=== PATIENT | female | born 1980 | race Caucasian/White ===

== ENCOUNTER 2023-10-31 09:23 | Emergency (ER) | payer BC ==
--- OUTSIDE RECORDS SUMMARY | 2023-10-31 09:27 | XMS REPORT | Continuity of Care Document ---
Author Name Unknown Address [address] [facility] [address] [place] [address] [facility] thconnect Address [address] [facility]. [address] [place] [address] Care Team Providers Care Supervisor Of Way Name Role Phone LEILANI MEDELLIN Primary Care Physician Unav ailable CHINMAY DAY Attending Clinician Unavailable Fernando Louise Attending Clinician [phone] Chinmay Day MD Attending Clinician [phone] LEIDY DAVILA Attending Clinician Unavailable Leidy Davila MD Attending Clinician [phone] Doctor Unassigned, [place] Attending Clinician U navailable DARREN GORE Attending Clinician Unavailable Jcarlos Caraballo DO Attending Clinician [phone] Darren Gore DO Attending Clinician [phone] Jimbo Jackson MD Attending Clinicia n Jonny Snow MD Attending Clinician [phone] Radiology Attending Clinician Unavailable RADIOLOGY Attending Clinician Unavailable Amy Curiel NP Attending Clinician [phone] DARREN GORE Admitting Clinician Unavailable Darren Gore DO Admitting Clinician [phone] Payers Payer Name Policy Type Policy Number Effective Date Expirati on Date Source BCBS [facility] - OUT OF STATE [id number] 1 2017 00:00:00 COMMERCIAL NON-CONTRACT GENERIC [id number] 2016 00:00:00 Problems Condition Name Condition Details Condition Category Status Onset Date Resolution Date Last Treatment Date Treating Clinician Comments Source Acute appendicit is Acute appendicit is Disease Active 2021-08 00:00: 00 [facility] Obesity (BMI 30-39.9) Obesity (BMI 30-39.9) Disease Active 2021-08 00:00: 00 [facility] Right lower quadrant abdominal pain Right lower quadrant abdominal pain Disease Active 2021-08 00:00: 00 Overview: Formattin g of this note might be different from the original. Added automatic ally from request for surgery [id number] [facility] No known active problems No known active problems Disease [facility] Allergies, Adverse Reactions, Alerts Allergy Name Allergy Type Status Severity Reaction(s) Onset Date Inactive Date Treating Clinician Comments Source NO KNOWN ALLERGIE S Drug Class Active [facility] Social History Social Habit Start Date Stop Date Quantity Comments Source [facility] History of tobacco use Cigarette Smoker [facility] ASSERTION [facility] Exposure to SARS-CoV-2 (event) 2022-06-15 00:00:00 2022-06-25 08:31:[address] [facility] Alcohol intake 2022-06-25 00:00:00 2022-06-25 00:00:00 Current drinker of alcohol (finding) [facility] History of Social function 2022-06-10 00:00:00 2022-06-10 00:00:00 [facility] Tobacco use and exposure 2022-06-09 00:00:00 2022-06-09 00:00:00 Smokeless tobacco non-user [facility] Education - What is the highest level of school you have completed or the highest degree you have received? 2022-06-09 00:00:00 2022-06-09 00:00:[address] [facility] Sex Assigned At 1980 00:00:00 1980 00:00:00 [facility] Smoking Status Start Date Stop Date Source Ex-smoker 2022-06-09 00:00:00 2022-06-09 00:00:00 [facility] Unknown if ever smoked [facility] Medications Ordered Medication Name Filled Medication Name Start Date Stop Date Current Medication? Ordering Clinician Indication Dosage Frequency Signature (SIG) Comments Components Source acetaminoph en-codeine (TYLENOL #3) 300-30 mg tablet 1 tablet 2021-08 19:00: 00 06-11 18:36 :00 No 1{tbl} 1 tablet, Oral, ONCE, 1 dose, On Sat06/11/22 at 1300, Routine [facility] acetaminoph en-codeine (TYLENOL #3) 300-30 mg tablet 1 tablet 2021-08 19:00: 00 06-11 18:36 :00 No 1{tbl} 1 tablet, Oral, ONCE, 1 dose, On Sat06/11/22 at 1300, Routine [facility] omeprazole (PRILOSEC) capsule 40 mg 2021-08 15:00: 00 Yes 40mg 40 mg, Oral, DAILY, First dose on Sat06/11/22 at 0900, Until Discontinu ed [facility] omeprazole (PRILOSEC) capsule 40 mg 2021-08 15:00: 00 Yes 40mg 40 mg, Oral, DAILY, First dose on Sat06/11/22 at 0900, Until Discontinu ed [facility] Thyroid, Pork, (ARMOUR THYROID) 90 mg tablet 2021-08 13:07: 21 Yes Take by mouth. [facility] buPROPion SR 100 mg SR tablet 2021-08 13:07: 21 Yes 100mg Take 100 mg by mouth in the morning and 100 mg in the evening. [facility] lamoTRIgine 25 mg tablet 2021-08 13:07: 21 Yes 25mg Take 25 mg by mouth in the morning. [facility] omeprazole 40 mg capsule 2021-08 13:07: 21 Yes 40mg Take 40 mg by mouth in the morning. [facility] topiramate 50 mg Cp24 2021-08 13:07: 21 Yes Take by mouth. [facility] citalopram 40 mg tablet 2021-08 13:07: 21 Yes 40mg Take 40 mg by mouth in the morning. [facility] Thyroid, Pork, (ARMOUR THYROID) 90 mg tablet 2021-08 13:07: 21 Yes Take by mouth. [facility] buPROPion SR 100 mg SR tablet 2021-08 13:07: 21 Yes 100mg Take 100 mg by mouth in the morning and 100 mg in the evening. [facility] lamoTRIgine 25 mg tablet 2021-08 13:07: 21 Yes 25mg Take 25 mg by mouth in the morning. [facility] omeprazole 40 mg capsule 2021-08 13:07: 21 Yes 40mg Take 40 mg by mouth in the morning. [facility] topiramate 50 mg Cp24 2021-08 13:07: 21 Yes Take by mouth. [facility] citalopram 40 mg tablet 2021-08 13:07: 21 Yes 40mg Take 40 mg by mouth in the morning. [facility] Thyroid, Pork, (ARMOUR THYROID) 90 mg tablet 2021-08 13:07: 21 Yes Take by mouth. [facility] buPROPion SR 100 mg SR tablet 2021-08 13:07: 21 Yes 100mg Take 100 mg by mouth in the morning and 100 mg in the evening. [facility] lamoTRIgine 25 mg tablet 2021-08 13:07: 21 Yes 25mg Take 25 mg by mouth in the morning. [facility] omeprazole 40 mg capsule 2021-08 13:07: 21 Yes 40mg Take 40 mg by mouth in the morning. [facility] topiramate 50 mg Cp24 2021-08 13:07: 21 Yes Take by mouth. [facility] citalopram 40 mg tablet 2021-08 13:07: 21 Yes 40mg Take 40 mg by mouth in the morning. [facility] Thyroid, Pork, (ARMOUR THYROID) 90 mg tablet 2021-08 13:07: 21 Yes Take by mouth. [facility] buPROPion SR 100 mg SR tablet 2021-08 13:07: 21 Yes 100mg Take 100 mg by mouth in the morning and 100 mg in the evening. [facility] lamoTRIgine 25 mg tablet 2021-08 13:07: 21 Yes 25mg Take 25 mg by mouth in the morning. [facility] omeprazole 40 mg capsule 2021-08 13:07: 21 Yes 40mg Take 40 mg by mouth in the morning. [facility] topiramate 50 mg Cp24 2021-08 13:07: 21 Yes Take by mouth. [facility] citalopram 40 mg tablet 2021-08 13:07: 21 Yes 40mg Take 40 mg by mouth in the morning. [facility] Thyroid, Pork, (ARMOUR THYROID) 90 mg tablet 2021-08 13:07: 21 Yes Take by mouth. [facility] buPROPion SR 100 mg SR tablet 2021-08 13:07: 21 Yes 100mg Take 100 mg by mouth in the morning and 100 mg in the evening. [facility] lamoTRIgine 25 mg tablet 2021-08 13:07: 21 Yes 25mg Take 25 mg by mouth in the morning. [facility] omeprazole 40 mg capsule 2021-08 13:07: 21 Yes 40mg Take 40 mg by mouth in the morning. [facility] topiramate 50 mg Cp24 2021-08 13:07: 21 Yes Take by mouth. [facility] citalopram 40 mg tablet 2021-08 13:07: 21 Yes 40mg Take 40 mg by mouth in the morning. [facility] Thyroid, Pork, (ARMOUR THYROID) 90 mg tablet 2021-08 13:07: 21 Yes Take by mouth. [facility] buPROPion SR 100 mg SR tablet 2021-08 13:07: 21 Yes 100mg Take 100 mg by mouth in the morning and 100 mg in the evening. [facility] lamoTRIgine 25 mg tablet 2021-08 13:07: 21 Yes 25mg Take 25 mg by mouth in the morning. [facility] omeprazole 40 mg capsule 2021-08 13:07: 21 Yes 40mg Take 40 mg by mouth in the morning. [facility] topiramate 50 mg Cp24 2021-08 13:07: 21 Yes Take by mouth. [facility] citalopram 40 mg tablet 2021-08 13:07: 21 Yes 40mg Take 40 mg by mouth in the morning. [facility] Thyroid, Pork, (ARMOUR THYROID) 90 mg tablet 2021-08 13:07: 21 Yes Take by mouth. [facility] buPROPion SR 100 mg SR tablet 2021-08 13:07: 21 Yes 100mg Take 100 mg by mouth in the morning and 100 mg in the evening. [facility] lamoTRIgine 25 mg tablet 2021-08 13:07: 21 Yes 25mg Take 25 mg by mouth in the morning. [facility] omeprazole 40 mg capsule 2021-08 13:07: 21 Yes 40mg Take 40 mg by mouth in the morning. [facility] topiramate 50 mg Cp24 2021-08 13:07: 21 Yes Take by mouth. [facility] citalopram 40 mg tablet 2021-08 13:07: 21 Yes 40mg Take 40 mg by mouth in the morning. [facility] thyroid (ARMOUR THYROID) tablet 30 mg 2021-08 12:00: 00 Yes 30mg 30 mg, Oral, QAM-0600, First dose on Sat06/11/22 at 0600, Until Discontinu ed [facility] thyroid (ARMOUR THYROID) tablet 30 mg 2021-08 12:00: 00 Yes 30mg 30 mg, Oral, QAM-0600, First dose on Sat06/11/22 at 0600, Until Discontinu ed [facility] citalopram (CELEXA) tablet 40 mg 2021-08 03:00: 00 Yes 40mg 40 mg, Oral, QHS, First dose (after last modificati on) on Sat06/10/22 at 2100, Until Discontinu ed, Routine [facility] citalopram (CELEXA) tablet 40 mg 2021-08 03:00: 00 Yes 40mg 40 mg, Oral, QHS, First dose (after last modificati on) on Sat06/10/22 at 2100, Until Discontinu ed, Routine [facility] HYDROcodone -acetaminop hen (NORCO 5) 5-325 mg tablet 1 tablet 2021-08 01:14: 43 Yes 1{tbl} 1 tablet, Oral, Q6HPRN, Starting on Sat06/10/22 at 1914, Until Discontinu ed, Routine, Pain (scale 4-6) [facility] HYDROcodone -acetaminop hen (NORCO 5) 5-325 mg tablet 1 tablet 2021-08 01:14: 43 Yes 1{tbl} 1 tablet, Oral, Q6HPRN, Starting on Sat06/10/22 at 1914, Until Discontinu ed, Routine, Pain (scale 4-6) [facility] morpHINE (2 mg/mL) injection 4 mg 2021-08 01:14: 13 06-12 01:13 :13 No 4mg 4 mg, Slow IV Push, Q4HPRN, Starting on Sat06/10/22 at 1914, Until Sat06/11/22 at 1913, Routine, Pain (scale 7-10) [facility] morpHINE (2 mg/mL) injection 4 mg 2021-08 01:14: 13 06-12 01:13 :13 No 4mg 4 mg, Slow IV Push, Q4HPRN, Starting on Sat06/10/22 at 1914, Until 06/11/22 at 1913, Routine, Pain (scale 7-10) [facility] ondansetron (ZOFRAN (PF)) injection 4 mg 2021-08 00:31: 11 Yes 4mg 4 mg, Slow IV Push, Q6HPRN, Nausea and Vomiting (N/V), Starting on 06/10/22 at 1831
Do ses of ondansetro n 16 mg and above need to be administer ed via IV piggyback. For Dose >=24mg ECG monitoring is advisable.
[facility] ondansetron (ZOFRAN (PF)) injection 4 mg 2021-08 00:31: 11 Yes 4mg 4 mg, Slow IV Push, Q6HPRN, Nausea and Vomiting (N/V), Starting on 06/10/22 at 1831
Do ses of ondansetro n 16 mg and above need to be administer ed via IV piggyback. For Dose >=24mg ECG monitoring is advisable.
[facility] acetaminoph en-codeine 300-30 mg tablet 2021-08 00:00: 00 06-19 05:59 :00 No 4647 1{tbl} Take 1 tablet by mouth every 4 (four) hours as needed for Pain (scale 7-10) for up to 7 days. Indication s: acute pain [facility] acetaminoph en-codeine 300-30 mg tablet 2021-08 00:00: 00 06-19 05:59 :00 No [id number] 1{tbl} Take 1 tablet by mouth every 4 (four) hours as needed for Pain (scale 7-10) for up to 7 days. Indication s: acute pain [facility] lidocaine 1% (PF) (XYLOCAINE) injection 2021-08 22:38: 00 06-10 23:46 :17 No PRN, Starting on 06/10/22 at 1638, Until 06/10/22 at 1746, Routine, Intra-op [facility] sodium chloride 0.9 % irrigation solution 2021-08 22:38: 00 06-10 23:46 :17 No PRN, Starting on 06/10/22 at 1638, Until 06/10/22 at 1746, Intra-op [facility] dexamethaso ne (DECADRON PHOSPHATE) injection 2021-08 22:38: 00 06-10 23:39 :37 No IV Push, ONCE INTRA PROCEDURE, Starting on 06/10/22 at 1638, Until 06/10/22 at 1739, Routine, Intra-op [facility] glycopyrrol ate (ROBINUL) injection 2021-08 22:30: 00 06-10 23:39 :37 No Intravenou s, ONCE INTRA PROCEDURE, Starting on 06/10/22 at 1630, Until 06/10/22 at 1739, Routine, Intra-op [facility] ePHEDrine 25 mg/5 mL (5 mg/mL) syringe 2021-08 22:30: 00 06-10 23:39 :37 No Intravenou s, ONCE INTRA PROCEDURE, Starting on 06/10/22 at 1630, Until 06/10/22 at 1739, Routine, Intra-op [facility] PHENYLephri ne 1000 mcg/10 mL in 0.9% NaCl syringe 2021-08 22:23: 00 06-10 23:39 :37 No Slow IV Push, CONTINUOUS PRN, Starting on 06/10/22 at 1623, Until 06/10/22 at 1739, Routine, Intra-op [facility] rocuronium (ZEMURON) injection 2021-08 22:22: 00 06-10 23:39 :37 No IV Push, ONCE INTRA PROCEDURE, Starting on 06/10/22 at 1622, Until 06/10/22 at 1739, Routine, Intra-op [facility] succinylcho line (QUELICIN) injection 2021-08 22:17: 00 06-10 23:39 :37 No IV Push, ONCE INTRA PROCEDURE, Starting on 06/10/22 at 1617, Until 06/10/22 at 1739, Routine, Intra-op [facility] FENTanyl PF (SUBLIMAZE (PF)) injection 2021-08 22:17: 00 06-10 23:39 :37 No Intravenou s, ONCE INTRA PROCEDURE, Starting on 06/10/22 at 1617, Until 06/10/22 at 1739, Routine, Intra-op [facility] lidocaine 1% (XYLOCAINE) 100 mg/10 mL (1 %) injection 2021-08 22:17: 00 06-10 23:39 :37 No Intravenou s, ONCE INTRA PROCEDURE, Starting on 06/10/22 at 1617, Until 06/10/22 at 1739, Routine, Intra-op [facility] propofoL IV infusion 2021-08 22:17: 00 06-10 23:39 :37 No Intravenou s, ONCE INTRA PROCEDURE, Starting on 06/10/22 at 1617, Until 06/10/22 at 1739, Routine, Intra-op [facility] midazolam (VERSED) injection 2021-08 22:12: 00 06-13 15:14 :51 No IV Push, ONCE INTRA PROCEDURE, Starting on 06/10/22 at 1612, Until 06/13/22 at 0914, Routine, Intra-op [facility] lactated ringers IV infusion 2021-08 22:11: 00 06-10 23:39 :37 No Intravenou s, CONTINUOUS PRN, Starting on 06/10/22 at 1611, Until 06/10/22 at 1739, Routine, Intra-op [facility] ondansetron (ZOFRAN (PF)) injection 4 mg 2021-08 22:00: 00 06-10 21:20 :00 No 4mg 4 mg, Slow IV Push, ONCE, On 06/10/22 at 1600, For 1 dose
Do ses of ondansetro n 16 mg and above need to be administer ed via IV piggyback. For Dose >=24mg ECG monitoring is advisable.
[facility] ondansetron (ZOFRAN (PF)) injection 4 mg 2021-08 22:00: 00 06-10 21:20 :00 No 4mg 4 mg, Slow IV Push, ONCE, On 06/10/22 at 1600, For 1 dose
Do ses of ondansetro n 16 mg and above need to be administer ed via IV piggyback. For Dose >=24mg ECG monitoring is advisable.
[facility] topiramate (TOPAMAX) tablet 100 mg 2021-08 18:30: 00 Yes 100mg 100 mg, Oral, QAM, First dose on 06/10/22 at 1230, Until Discontinu ed
Facu lty member approving Restricted medication : ESTIVEN CHOI [facility] topiramate (TOPAMAX) tablet 100 mg 2021-08 18:30: 00 Yes 100mg 100 mg, Oral, QAM, First dose on 06/10/22 at 1230, Until Discontinu ed
Facu lty member approving Restricted medication : ESTIVEN CHOI [facility] acetaminoph en (TYLENOL) tablet 650 mg 2021-08 17:28: 01 Yes 650mg 650 mg, Oral, Q6HPRN, Starting on 06/10/22 at 1128, Until Discontinu ed, Routine, Pain (scale 1-3) [facility] acetaminoph en (TYLENOL) tablet 650 mg 2021-08 17:28: 01 Yes 650mg 650 mg, Oral, Q6HPRN, Starting on 06/10/22 at 1128, Until Discontinu ed, Routine, Pain (scale 1-3) [facility] buPROPion SR (WELLBUTRIN SR) tablet 300 mg 2021-08 17:00: 00 Yes 300mg 300 mg, Oral, DAILY, First dose (after last modificati on) on 06/10/22 at 1100, Until Discontinu ed, Routine [facility] buPROPion SR (WELLBUTRIN SR) tablet 300 mg 2021-08 17:00: 00 Yes 300mg 300 mg, Oral, DAILY, First dose (after last modificati on) on Sat06/10/22 at 1100, Until Discontinu ed, Routine [facility] enoxaparin (LOVENOX) injection 40 mg 2021-08 15:00: 00 Yes 40mg 40 mg, Subcutaneo us, DAILY, First dose on Sat06/10/22 at 0900, Until Discontinu ed, Routine [facility] enoxaparin (LOVENOX) injection 40 mg 2021-08 15:00: 00 Yes 40mg 40 mg, Subcutaneo us, DAILY, First dose on 06/10/22 at 0900, Until Discontinu ed, Routine [facility] piperacilli n-tazobacta m (ZOSYN) 3.375 g in NaCl 0.9% (NS) 50 mL MINI-BAG 2021-08 10:00: 00 06-17 09:59 :00 No 3.375g 3.375 g, IV Piggyback, Q8H ABX, 21 doses, First dose (after last modificati on) on Sat06/10/22 at 0400, Last dose on [facility] 06/16/22 at 2000, Administer over 240 Minutes, 50 mL
Reas on for Anti-Infec tive: Documented Infection< br>Documen dereje Infection Site: Abdominal< br>Duratio n of Therapy: 7 days [facility] piperacilli n-tazobacta m (ZOSYN) 3.375 g in NaCl 0.9% (NS) 50 mL MINI-BAG 2021-08 10:00: 00 06-17 09:59 :00 No 3.375g 3.375 g, IV Piggyback, Q8H ABX, 21 doses, First dose (after last modificati on) on 06/10/22 at 0400, Last dose on 06/16/22 at 2000, Administer over 240 Minutes, 50 mL
Reas on for Anti-Infec tive: Documented Infection< br>Documen dereje Infection Site: Abdominal< br>Duratio n of Therapy: 7 days [facility] lamoTRIgine (LAMICTAL) tablet 50 mg 2021-08 05:00: 00 Yes 50mg 50 mg, Oral, QHS, First dose (after last modificati on) on 06/10/22 at 0000, Until Discontinu ed, Routine [facility] lamoTRIgine (LAMICTAL) tablet 50 mg 2021-08 05:00: 00 Yes 50mg 50 mg, Oral, QHS, First dose (after last modificati on) on 06/10/22 at 0000, Until Discontinu ed, Routine [facility] piperacilli n-tazobacta m (ZOSYN) 3.375 g in NaCl 0.9% (NS) 50 mL MINI-BAG 2021-08 01:00: 00 06-10 00:44 :00 No 3.375g 3.375 g, IV Piggyback, ONCE, 1 dose, On 06/09/22 at 2000, Administer over 30 Minutes, 50 mL
Reas on for Anti-Infec tive: Documented Infection< br>Documen dereje Infection Site: Abdominal< br>Duratio n of Therapy: 7 days [facility] piperacilli n-tazobacta m (ZOSYN) 3.375 g in NaCl 0.9% (NS) 50 mL MINI-BAG 2021-08 01:00: 00 06-10 00:44 :00 No 3.375g 3.375 g, IV Piggyback, ONCE, 1 dose, On 06/09/22 at 2000, Administer over 30 Minutes, 50 mL
Reas on for Anti-Infec tive: Documented Infection< br>Documen dereje Infection Site: Abdominal< br>Duratio n of Therapy: 7 days [facility] ketorolac (TORADOL) injection 30 mg 2021-08 00:15: 00 06-09 23:23 :00 No 30mg 30 mg, Slow IV Push, ONCE, 1 dose, On 06/09/22 at 1915, Routine [facility] ketorolac (TORADOL) injection 30 mg 2021-08 00:15: 00 06-09 23:23 :00 No 30mg 30 mg, Slow IV Push, ONCE, 1 dose, On 06/09/22 at 1915, Routine [facility] lactated ringers IV infusion 1,000 mL 2021-08 00:00: 00 06-10 23:38 :16 No 1000mL at 100 mL/hr, 1,000 mL, IV Infusion, CONTINUOUS , Starting on 06/09/22 at 1900, Until 06/10/22 at 1738, Routine [facility] lactated ringers IV infusion 1,000 mL 2021-08 00:00: 00 06-10 23:38 :16 No 1000mL at 100 mL/hr, 1,000 mL, IV Infusion, CONTINUOUS , Starting on 06/09/22 at 1900, Until 06/10/22 at 1738, Routine [facility] ondansetron (ZOFRAN (PF)) injection 4 mg 2021-08 23:57: 18 06-10 21:15 :05 No 4mg 4 mg, Slow IV Push, Q6HPRN, Starting on 06/09/22 at 1857, Until 06/10/22 at 1515, DONAL, Nausea and Vomiting (N/V) [facility] ondansetron (ZOFRAN (PF)) injection 4 mg 2021-08 23:57: 18 06-10 21:15 :05 No 4mg 4 mg, Slow IV Push, Q6HPRN, Starting on 06/09/22 at 1857, Until 06/10/22 at 1515, DONAL, Nausea and Vomiting (N/V) [facility] morpHINE (2 mg/mL) injection 4 mg 2021-08 23:56: 25 06-11 00:55 :25 No 4mg 4 mg, Slow IV Push, Q4HPRN, Starting on 06/09/22 at 1856, Until 06/10/22 at 1855, Routine, Pain (scale 7-10) [facility] morpHINE (2 mg/mL) injection 4 mg 2021-08 23:56: 25 06-11 00:55 :25 No 4mg 4 mg, Slow IV Push, Q4HPRN, Starting on 06/09/22 at 1856, Until 06/10/22 at 1855, Routine, Pain (scale 7-10) [facility] NaCl 0.9% (NS) bolus infusion 1,000 mL 2021-08 22:30: 00 06-09 23:24 :00 No 1000mL at 999 mL/hr, 1,000 mL, IV Infusion, ONCE, 1 dose, On 06/09/22 at 1730, DONAL [facility] NaCl 0.9% (NS) bolus infusion 1,000 mL 2021-08 22:30: 00 06-09 23:24 :00 No 1000mL at 999 mL/hr, 1,000 mL, IV Infusion, ONCE, 1 dose, On 06/09/22 at 1730, DONAL [facility] iopamidol (ISOVUE 370-500 mL) injection 100 mL 2021-08 21:57: 00 06-09 22:15 :00 No [id number] 100mL 100 mL, Intravenou s, ONCE, 1 dose, On 06/09/22 at 1715, Routine [facility] iopamidol (ISOVUE 370-500 mL) injection 100 mL 2021-08 21:57: 00 06-09 22:15 :00 No [id number] 100mL 100 mL, Intravenou s, ONCE, 1 dose, On 06/09/22 at 1715, Routine [facility] ondansetron (ZOFRAN (PF)) injection 4 mg 2021-08 21:45: 00 06-09 21:47 :00 No 4mg 4 mg, Slow IV Push, ONCE, 1 dose, On 06/09/22 at 1645, DONAL [facility] morpHINE (4 mg/mL) injection 4 mg 2021-08 21:45: 00 06-09 21:47 :00 No 4mg 4 mg, Slow IV Push, ONCE, 1 dose, On 06/09/22 at 1645, STAT [facility] ondansetron (ZOFRAN (PF)) injection 4 mg 2021-08 21:45: 00 06-09 21:47 :00 No 4mg 4 mg, Slow IV Push, ONCE, 1 dose, On 06/09/22 at 1645, DONAL [facility] morpHINE (4 mg/mL) injection 4 mg 2021-08 21:45: 00 06-09 21:47 :00 No 4mg 4 mg, Slow IV Push, ONCE, 1 dose, On 06/09/22 at 1645, STAT [facility] ETONOGESTRE L-ETHINYL ESTRADIOL 0.12-0.015 MG/24 HR VAGINAL RING 09-16 00:00: [address] one ring in vagina for 3 weeks, then remove for 1 week [facility] IBUPROFEN 800 MG ORAL TAB 09-16 00:00: 00 Yes take 1 tab PO q4-6 hrs [facility] ETONOGESTRE L-ETHINYL ESTRADIOL 0.12-0.015 MG/24 HR VAGINAL RING 09-16 00:00: [address] one ring in vagina for 3 weeks, then remove for 1 week [facility] IBUPROFEN 800 MG ORAL TAB 09-16 00:00: 00 Yes take 1 tab PO q4-6 hrs [facility] ETONOGESTRE L-ETHINYL ESTRADIOL 0.12-0.015 MG/24 HR VAGINAL RING 09-16 00:00: [address] one ring in vagina for 3 weeks, then remove for 1 week [facility] IBUPROFEN 800 MG ORAL TAB 09-16 00:00: 00 Yes take 1 tab PO q4-6 hrs [facility] ETONOGESTRE L-ETHINYL ESTRADIOL 0.12-0.015 MG/24 HR VAGINAL RING 09-16 00:00: [address] one ring in vagina for 3 weeks, then remove for 1 week [facility] IBUPROFEN 800 MG ORAL TAB 2-12 00:00: 00 Yes take 1 tab PO q4-6 hrs [facility] ETONOGESTRE L-ETHINYL ESTRADIOL 0.12-0.015 MG/24 HR VAGINAL RING 2- 00:00: [address] one ring in vagina for 3 weeks, then remove for 1 week [facility] IBUPROFEN 800 MG ORAL TAB 2-12 00:00: 00 Yes take 1 tab PO q4-6 hrs [facility] GABAPENTIN 300 MG ORAL CAP 2- 00:00: 00 Yes 1 tab three times daily [facility] AMITRIPTYLI NE 25 MG ORAL TAB 2- 00:00: 00 Yes Take one tab daily [facility] ETONOGESTRE L-ETHINYL ESTRADIOL 0.12-0.015 MG/24 HR VAGINAL RING 09-16 00:00: [address] one ring in vagina for 3 weeks, then remove for 1 week [facility] ETONOGESTRE L-ETHINYL ESTRADIOL 0.12-0.015 MG/24 HR VAGINAL RING 09-16 00:00: [address] one ring in vagina for 3 weeks, then remove for 1 week [facility] IBU[facility] 800 MG ORAL TAB 212 00:00: 00 Yes take 1 tab PO q4-6 hrs [facility] IBUPROFEN 800 MG ORAL TAB 2- 00:00: 00 Yes take 1 tab PO q4-6 hrs [facility] GABAPENTIN 300 MG ORAL CAP 09-16 00:00: 00 Yes 1 tab three times daily [facility] AMITRIPTYLI NE 25 MG ORAL TAB 2- 00:00: 00 Yes Take one tab daily [facility] ETONOGESTRE L-ETHINYL ESTRADIOL 0.12-0.015 MG/24 HR VAGINAL RING 2- 00:00: [address] one ring in vagina for 3 weeks, then remove for 1 week [facility] IBUPROFEN 800 MG ORAL TAB 09-16 00:00: 00 Yes take 1 tab PO q4-6 hrs Univers [facility] ETONOGESTRE L-ETHINYL ESTRADIOL 0.12-0.015 MG/24 HR VAGINAL RING 09-16 00:00: [address] one ring in vagina for 3 weeks, then remove for 1 week [facility] IBU[facility] 800 MG ORAL TAB 09-16 00:00: 00 Yes take 1 tab PO q4-6 hrs Univers [facility] GABAPENTIN 300 MG ORAL CAP 09-16 00:00: 00 06-11 00:00 :00 No 1 tab three times daily Univers [facility] AMITRIPTYLI NE 25 MG ORAL TAB 09-16 00:00: 00 06-11 00:00 :00 No Take one tab daily Univers [facility] GABAPENTIN 300 MG ORAL CAP 09-16 00:00: 00 06-11 00:00 :00 No 1 tab three times daily Univers [facility] AMITRIPTYLI NE 25 MG ORAL TAB 09-16 00:00: 00 06-11 00:00 :00 No Take one tab daily Univers [facility] GABAPENTIN 300 MG ORAL CAP 09-16 00:00: 00 06-11 00:00 :00 No 1 tab three times daily Univers [facility] AMITRIPTYLI NE 25 MG ORAL TAB 09-16 00:00: 00 06-11 00:00 :00 No Take one tab daily [facility] Vital Signs Vital Name Observation Time Observation Value Comments S ource Systolic blood pressure 2023-10-29 22:03:00 147 mm[Hg] [facility] Diastolic blood pressure 2023-10-29 22:03:00 104 mm[Hg] [facility] Heart rate 2023-10-29 22:03:00 98 /min Bernardino [facility] Body temperature 2023-10-29 22:03:[address] [facility] Respiratory rate 2023-10-29 22:03:00 14 /min [facility] Body height 2023-10-29 22:03:00 167.6 cm [facility] Body weight 2023-10-29 22:03:00 110.904 kg [facility] BMI 2023-10-29 22:03:00 39.46 kg/m2 [facility] Oxygen saturation in Arterial blood by Pulse oximetry 2023-10-29 22:03:00 100 /min [facility] Systolic blood pressure 2022-06-25 14:58:00 103 mm[Hg] [facility] Diastolic blood pressure 2022-06-25 14:58:00 72 mm[Hg] [facility] Heart rate 2022-06-25 14:58:00 91 /min Unive [facility] Body height 2022-06-25 14:58:00 167.6 cm [facility] Body weight 2022-06-25 14:58:00 99.156 kg [facility] BMI 2022-06-25 14:58:00 35.28 kg/m2 [facility] Oxygen saturation in Arterial blood by Pulse oximetry 2022-06-25 14:58:00 99 /min [facility] Systolic blood pressure 2022-06-11 17:24:00 104 mm[Hg] [facility] Diastolic blood pressure 2022-06-11 17:24:00 67 mm[Hg] [facility] Heart rate 2022-06-11 17:24:00 83 /min Unive [facility] Body temperature 2022-06-11 17:24:[address] [facility] Respiratory rate 2022-06-11 17:24:00 18 /min [facility] Oxygen saturation in Arterial blood by Pulse oximetry 2022-06-11 17:24:00 96 /min [facility] Body weight 2022-06-11 09:25:00 99.973 kg Univ [facility] BMI 2022-06-11 09:25:00 35.57 kg/m2 [facility] Body height 2022-06-09 21:19:00 167.6 cm [facility] Systolic blood pressure 2022-06-10 20:37:00 108 mm[Hg] [facility] Diastolic blood pressure 2022-06-10 20:37:00 68 mm[Hg] [facility] Heart rate 2022-06-10 20:37:00 84 /min Unive [facility] Body temperature 2022-06-10 20:37:[address] [facility] Respiratory rate 2022-06-10 20:37:00 18 /min [facility] Oxygen saturation in Arterial blood by Pulse oximetry 2022-06-10 20:37:00 96 /min [facility] Body weight 2022-06-10 09:23:00 98.476 kg [facility] BMI 2022-06-10 09:23:00 35.57 kg/m2 [facility] Body height 2022-06-09 21:19:00 167.6 cm [facility] Systolic blood pressure 2020-09-15 23:00:00 128 mm[Hg] [facility] Diastolic blood pressure 2020-09-15 23:00:00 82 mm[Hg] [facility] Heart rate 2020-09-15 23:00:00 97 [facility] Respiratory rate 2020-09-15 23:00:00 17 /min [facility] Oxygen saturation in Arterial blood by Pulse oximetry 2020-09-15 23:00:00 98 /min [facility] Body temperature 2020-09-15 19:49:[address] [facility] Body weight 2020-09-15 19:49:00 72.576 kg [facility] Procedures Procedure Date / Time Performed Performing Clinician Source US GALL BLADDER 2023-10-29 23:48:22 [facility] OF BENEFITS 2022-06-25 14:32:23 Docto r Unassigned, [facility] [facility] INTUBATION 2022-06-10 22:20:[address] [facility] LAPAROSCOPIC APPENDECTOMY 2022-06-10 21:53:00 Snow, [facility] LAPAROSCOPIC APPENDECTOMY 2022-06-10 21:53:00 Edy [facility] COVID-19 (ID NOW RAPID TESTING) 2022-06-10 19:15:00 Den [facility] LAB ONLY COVID INTERPRETATION 2022-06-10 19:15:00 Migel, [facility] COVID-19 (ID NOW RAPID TESTING) 2022-06-10 19:15:00 Den, [facility] LAB ONLY COVID INTERPRETATION 2022-06-10 19:15:00 Den, [facility] MRSA / MSSA SCREEN BY PCR, [facility] 2022-06-10 04:32:00 Yaakov [facility] MRSA / MSSA SCREEN BY PCR, [facility] 2022-06-10 04:32:00 Yaakov [facility] CT ABDOMEN PELVIS W CONTRAST 2022-06-09 22:07:20 Ilya, [facility] CT ABDOMEN PELVIS W CONTRAST 2022-06-09 22:07:20 Ilya, [facility] LIPASE 2022-06-09 21:42:00 Ilya [facility] HEPATIC FUNCTION PANEL (47237) (ALB,T.PRO,BILI T,BU/BC,ALT,AST,ALK PHOS) 2022-06-09 21:42:00 Ilya [facility] BASIC METABOLIC PANEL (NA, K, CL, CO2, GLUCOSE, BUN, CREATININE, CA) 2022-06-09 21:42:00 Ilya [facility] CBC WITH DIFF 2022-06-09 21:42:00 [facility] URINALYSIS 2022-06-09 21:42:00 Ilya [facility] LIPASE 2022-06-09 21:42:00 Ilya [facility] HEPATIC FUNCTION PANEL (32073) (ALB,T.PRO,BILI T,BU/BC,ALT,AST,ALK PHOS) 2022-06-09 21:42:[address] [facility] BASIC METABOLIC PANEL (NA, K, CL, CO2, GLUCOSE, BUN, CREATININE, CA) 2022-06-09 21:42:[address] [facility] CBC WITH DIFF 2022-06-09 21:42:00 Jcarlos Caraballo [facility] URINALYSIS 2022-06-09 21:42:00 [facility] FOR [facility]AG[facility] TREATMENT 2022-06-09 21:15:50 Doctor Unassigned, [place] [facility] CONSENT/REFUSAL FOR DIAGNOSIS AND TREATMENT 2022-06-09 21:15:50 Doctor Unassigned, [place] [facility] XR ELBOW >3 VW BILATERAL 2020-12-12 19:23:[address] [facility] XR HAND 3+ VW BILATERAL 2020-12-12 19:23:[address] [facility] XR WRIST 3+ VW BILATERAL 2020-12-12 19:23:18 Ashley More [facility] PATIENT FINANCIAL POLICY 2020-12-12 18:37:33 Doctor Unassigned, [place] [facility] NO SHOW OR MISSED APPOINTMENT POLICY ACKNOWLEDGEMENT 2020-12-12 18:37:09 Doctor Unassigned, [place] [facility] NOTICE OF PRIVACY PRACTICES 2020-12-12 18:36:49 Doctor Unassigned, [place] [facility] CONSENT/REFUSAL FOR DIAGNOSIS AND TREATMENT 2020-12-12 18:36:33 Doctor Unassigned, [place] [facility] ASSIGNMENT OF BENEFITS 2020-12-12 18:36:17 Docto r Unassigned, [place] [facility] ASSIGNMENT OF BENEFITS 2020-12-12 18:36:12 Docto r Unassigned, [place] [facility] UNILATERAL VENOUS DUPLEX LOWER EXTREMITY BY VASCULAR LAB 2020-09-15 21:12:[address] [facility] NOTICE OF PRIVACY PRACTICES 2020-09-15 19:41:16 Doctor Unassigned, [place] [facility] Encounters Start Date/Time End Date/Time Encounter Type Admission Type [facility] Care Department Encounter ID Source 2023-10-29 17:05:00 2023-10-29 20:58:00 Emergency X GISELL DAYTHEODORA RUST ERT [id number] [facility] 2023-10-29 17:05:00 2023-10-29 20:58:00 Emergency Fernando Lazcano Wakilanie Cordero [facility] 1.2840.114 350.1.13.10 4.2.7.2.686 [id number] [facility] 2022-06-25 08:45:00 2022-06-25 09:22:41 Outpatient R LEIDY DAVILA [facility] [id number] [facility] 2022-06-25 08:45:00 2022-06-25 09:22:41 Office Visit Leidy Davila [facility] PROFESSIO [facility] 1.2840.114 350.1.13.10 4.2.7.2.686 [id number] [facility] 2022-06-25 00:00:00 2022-06-25 00:00:00 Orders Only Doctor Unassigned, [place] [facility] 1.2840.114 350.1.13.10 4.2.7.2.686 [id number] [facility] 2022-06-09 16:24:00 2022-06-11 13:05:00 Outpatient X DARREN GORE [facility] [id number] [facility] 2022-06-09 16:24:00 2022-06-11 13:05:00 Emergency Jcarlos Caraballo David [facility] 1.2840.114 350.1.13.10 4.2.7.2.686 [id number] [facility] 2022-06-10 16:11:00 2022-06-10 17:39:00 Anesthesia Event Jimbo Tavarez [facility] [place] 1.2.840.114 350.1.13.10 4.2.7.2.686 [id number] [facility] 2022-06-10 15:00:00 2022-06-10 16:59:00 Surgery Jonny Snow [facility] 1.2.840.114 350.1.13.10 4.2.7.2.686 [id number] [facility] 2020-12-12 13:34:50 2020-12-12 23:59:00 Hospital Encounter Radiology [facility] 1.2.840.114 350.1.13.10 4.2.7.2.686 [id number] [facility] 2020-12-12 00:00:00 2020-12-12 00:00:00 Outpatient R RADIOLOGY [facility] [id number] [facility] 2020-09-15 13:51:00 2020-09-15 17:11:00 Emergency Amy Curiel [facility] [id number] 350.1.13.10 4.2.7.2.686 [id number] [facility] 2020-09-15 13:41:00 2020-09-15 13:41:00 Emergency X RUST ERT [id number] [facility] Results Test Description Test Time Test Comments Results Result Comments Source US GALL BLADDER 00:11:05 Procedure: ? RIGHT UPPER QUADRANT ULTRASOUND 10/29/2023 7:09 PM Ordering physician: FERNANDO LAZCANO Clinical indication: ?right upper quadrant pain Technique: ?Multiple transverse and longitudinal sonographic images of theright upper quadrant were submitted. Comparison: CAT scan abdomen dated 06/09/2022 Findings: Technically difficult and limited study due to patient bodyhabitus and bowel gas. Portion of the pancreas could not be seen due to overlying bowel gas. ?The liver, biliary tree, gallbladder, as well as visualized portions ofthe inferior vena cava and aorta are sonographically unremarkable inappearance. ?No evidence to ascites. Right kidney was sonographically examined. [facility] XR WRIST 3+ VW BILATERAL 20:51:35 No acute or focal osseous abnormality in the right or lefthand.2. No acute or focal osseous abnormalities right or left wrist.3. No acute or focal osseous abnormality within the right or left andelbow. RL: [id number] END OF REPORT Ordering Physician: DANIELLE MORE Clinical Indication: ELBOW PAIN Additional Clinical Information: Technical Quality: Good Comparison: None Technique: 3 view left elbow, 3 view right elbow, 3 view right and 3 viewleft wrist, 3 view right and 3V left hand Findings: In the right elbow, there is normal alignment. Normal bonemineralization. No significant enthesophyte formation. The left elbow, there is anatomic alignment. There is normal bonemineralization. No significant enthesophyte. In the right breast, is normal and the carpal bones. There is nochondrocalcinosis. Left wrist is normal alignment of carpal bones and there is nochondrocalcinosis. In the right hand, the joint spaces are normal. There is normal bonemineralization. There are no erosions. There are no subluxation. In the left hand, there is normal bone mineralization. There are noerosions. There are no subluxation. No chondrocalcinosis. [facility], Radiant Results Inft User - 12/12/2020 3:52 PM CDTOrdering Physician: DANIELLE MOREClinical Indication: ELBOW PAIN Additional Clinical Information:Technical Quality: GoodComparison: NoneTechnique: 3 view left elbow, 3 view right elbow, 3 view right and 3 viewleft wrist, 3 view right and 3V left handFindings: In the right elbow, there is normal alignment. Normal bonemineralization. No significant enthesophyte formation.The left elbow, there is anatomic alignment. There is normal bonemineralization. No significant enthesophyte.In the right breast, is normal and the carpal bones. There is nochondrocalcinosis.Left wrist is normal alignment of carpal bones and there is nochondrocalcinosis.In the right hand, the joint spaces are normal. There is normal bonemineralization. There are no erosions. There are no subluxation.In the left hand, there is normal bone mineralization. There are noerosions. There are no subluxation. No chondrocalcinosis.IMPRES SIONNo acute or focal osseous abnormality in the right or lefthand.2. No acute or focal osseous abnormalities right or left wrist.3. No acute or focal osseous abnormality within the right or left andelbow.RL: [id number] OF REPORT [facility] XR HAND 3+ VW BILATERAL 20:51:35 No acute or focal osseous abnormality in the right or lefthand.2. No acute or focal osseous abnormalities right or left wrist.3. No acute or focal osseous abnormality within the right or left andelbow. RL: 5611 END OF REPORT Ordering Physician: DANIELLE MORE Clinical Indication: ELBOW PAIN Additional Clinical Information: Technical Quality: Good Comparison: None Technique: 3 view left elbow, 3 view right elbow, 3 view right and 3 viewleft wrist, 3 view right and 3V left hand Findings: In the right elbow, there is normal alignment. Normal bonemineralization. No significant enthesophyte formation. The left elbow, there is anatomic alignment. There is normal bonemineralization. No significant enthesophyte. In the right breast, is normal and the carpal bones. There is nochondrocalcinosis. Left wrist is normal alignment of carpal bones and there is nochondrocalcinosis. In the right hand, the joint spaces are normal. There is normal bonemineralization. There are no erosions. There are no subluxation. In the left hand, there is normal bone mineralization. There are noerosions. There are no subluxation. No chondrocalcinosis. [facility], Radiant Results Inft User - 12/12/2020 3:52 PM CDTOrdering Physician: DANIELLE MOREClinical Indication: ELBOW PAIN Additional Clinical Information:Technical Quality: GoodComparison: NoneTechnique: 3 view left elbow, 3 view right elbow, 3 view right and 3 viewleft wrist, 3 view right and 3V left handFindings: In the right elbow, there is normal alignment. Normal bonemineralization. No significant enthesophyte formation.The left elbow, there is anatomic alignment. There is normal bonemineralization. No significant enthesophyte.In the right breast, is normal and the carpal bones. There is nochondrocalcinosis.Left wrist is normal alignment of carpal bones and there is nochondrocalcinosis.In the right hand, the joint spaces are normal. There is normal bonemineralization. There are no erosions. There are no subluxation.In the left hand, there is normal bone mineralization. There are noerosions. There are no subluxation. No chondrocalcinosis.IMPRES SIONNo acute or focal osseous abnormality in the right or lefthand.2. No acute or focal osseous abnormalities right or left wrist.3. No acute or focal osseous abnormality within the right or left andelbow.RL: 5611END OF REPORT [facility] XR ELBOW >3 VW BILATERAL 20:51:35 No acute or focal osseous abnormality in the right or lefthand.2. No acute or focal osseous abnormalities right or left wrist.3. No acute or focal osseous abnormality within the right or left andelbow. RL: 5611 END OF REPORT Ordering Physician: DANIELLE MORE Clinical Indication: ELBOW PAIN Additional Clinical Information: Technical Quality: Good Comparison: None Technique: 3 view left elbow, 3 view right elbow, 3 view right and 3 viewleft wrist, 3 view right and 3V left hand Findings: In the right elbow, there is normal alignment. Normal bonemineralization. No significant enthesophyte formation. The left elbow, there is anatomic alignment. There is normal bonemineralization. No significant enthesophyte. In the right breast, is normal and the carpal bones. There is nochondrocalcinosis. Left wrist is normal alignment of carpal bones and there is nochondrocalcinosis. In the right hand, the joint spaces are normal. There is normal bonemineralization. There are no erosions. There are no subluxation. In the left hand, there is normal bone mineralization. There are noerosions. There are no subluxation. No chondrocalcinosis. [facility], Radiant Results Inft User - 12/12/2020 3:53 PM CDTOrdering Physician: DANIELLE Schmittinical Indication: ELBOW PAIN Additional Clinical Information:Technical Quality: GoodComparison: NoneTechnique: 3 view left elbow, 3 view right elbow, 3 view right and 3 viewleft wrist, 3 view right and 3V left handFindings: In the right elbow, there is normal alignment. Normal bonemineralization. No significant enthesophyte formation.The left elbow, there is anatomic alignment. There is normal bonemineralization. No significant enthesophyte.In the right breast, is normal and the carpal bones. There is nochondrocalcinosis.Left wrist is normal alignment of carpal bones and there is nochondrocalcinosis.In the right hand, the joint spaces are normal. There is normal bonemineralization. There are no erosions. There are no subluxation.In the left hand, there is normal bone mineralization. There are noerosions. There are no subluxation. No chondrocalcinosis.IMPRES SIONNo acute or focal osseous abnormality in the right or lefthand.2. No acute or focal osseous abnormalities right or left wrist.3. No acute or focal osseous abnormality within the right or left andelbow.RL: 5611END OF REPORT [facility] Notes Date/Time Note Provider Source 2023-10-29 20:51:23 CXmoVrNtatz/+SnopAG+ dWsN5ZY2LTJVGI tYifdukY87ViO83Vx3l7bb8ZxBYkBZ5051 -03-26T20:51:23 Pt announced to PFS she is leaving. No AMA form signed. Testing pending. 11487-6Aqttxpcyk department TjpmVK3153-12-07C95:52:00[facility] [id number] .[id number] for patient [id number]j d C-CDA narrative [id number] R Martha TSE[id number] 64BGZAUATMDSWDJTLGZWANCK7407-89-14 T20:52:001.2.840.443717.1.72.3.15| [id number] [id number] Angelo Evans Martha TSE [facility] 2023-10-29 17:03:00 6NeT+K6oYmHzwhk1/Mhu go4EfmdbnOg3Rw vqln/I8EAemmDo4NXfnAm02dP//yDL1044T17:03:00 Angelo Mckeon is a 43 year old female c/o RUQ pain x 1 week, no emesis no fever, 47644-9Hdercfqbi department Triage uphkOV7141-94-13O30:05:08[facility] Triage [id number] .2.849882|[id number] for patient kxde94057-2Sfwzuxsnw department NoteLNNARRATIVEFormatted C-CDA narrative [id number] M. Barton RN[id number] 03FNPXGWYEUEYECFSLAXPZWP0175-79-95 T17:05:081.2.840.685392.1.72.3.15| 1.2.840.759609.1.13.104.2.7.2.7278 [id number] Hazel Melara RN [facility]"
[2023-10-31] MEDS ORDERED: ONDANSETRON 4 MG/2 ML VIAL ONE (09:48)
[2023-10-31] MEDS ORDERED: MORPHINE 4 MG/ML SYR ONE (09:49)
[2023-10-31 10:12] LABS: Absolute Basophils 0.1 K/uL (0-0.5); Absolute Eosinophils 0.2 K/uL (0-0.5); Absolute Lymphocytes (CBC) 2.3 K/uL (0.7-4.9); Absolute Monocytes 0.4 K/uL (0.1-1.3); Absolute Neutrophil 2.7 K/uL (1.8-8.0); Basophils % 1.3 % (0-1.3); Hematocrit 39.5 % (36.0-45.0); Hemoglobin 13.1 g/dL (12.0-15.0); Lymphocytes % 40.9 % (15.3-44.8); MCH 28.1 pg (27.0-35.0); MCHC 33.3 g/dL (32.0-36.0); MCV 84.4 fL (80-100); Monocytes % 6.9 % (3.3-12.3); Neutrophils % 46.9 % (41.7-73.7); Nucleated Red Blood Cells % 0.2 % (0-0); Platelets 295 thou/uL (152-406); RBC Red Blood Cell Count 4.68 M/uL (3.86-4.86); Red Cell Distribution Width 14.6 % (12.1-15.2)
[2023-10-31 10:12] LABS: Specific Gravity 1.009 (1.005-1.030); Sqamous Epithelial <5 /HPF (None Seen); Urine Bacteria <20 /HPF (<20); Urine Bilirubin NEGATIVE (Negative); Urine Blood Negative (Negative); Urine Clarity Clear (Clear); Urine Color Colorless (Yellow); Urine Culture Reflex Order NOT NEEDED; Urine Glucose NEGATIVE (Negative); Urine Ketones TRACE (Negative); Urine Microscopic Reflex YN ORDER UMIC; Urine Nitrite NEGATIVE (Negative); Urine Protein NEGATIVE (Negative); Urine RBC <5 /HPF (None Seen); Urine Urobilinogen Normal (Normal); Urine WBC <5 /HPF (<5); Urine pH 6.5 (5.0-7.0)
--- NOTE | 2023-10-31 10:16 | RAD REPORT ---
EXAM DESCRIPTION: CTAbdomen Pelvis W Contrast - 10/31/2023 10:10 am CLINICAL HISTORY: Abdominal pain. ABD PAIN COMPARISON: <Comparisons> TECHNIQUE: Biphasic CT imaging of the abdomen and pelvis was performed with 100 ml non-ionic IV cont rast. All CT scans are performed using dose optimization technique as appropriate and may include automated exposure control or mA/KV adjustment according to patient size. FINDINGS: The lung bases are clear. The liver, spleen, pancreas, adrenal glands and kidneys are within normal limits. No bowel obstruction, free air, free fluid or abscess. Hysterectomy. Appendectomy. No evidence of si gnificant lymphadenopathy. No suspicious bony findings. IMPRESSION: No acute intra-abdominal or pelvic finding.
[2023-10-31 10:27] LABS: Albumin 3.5 g/dL (3.4-5.0); Anion Gap 7.6 mEq/L (5.0-15.0); Bilirubin Total 0.2 mg/dL (0.2-1.0); Globulin 3.4 g/dL (2.3-3.5); Potassium 3.6 mEq/L (3.5-5.1); Protein, Total 6.9 g/dL (6.4-8.2)
--- NOTE | 2023-10-31 11:07 | EDPHYS ---
Physician Documentation [facility] Name: Nancy Mckeon Age: 43 yrs Sex: Female : 1980 Arrival Date: 10/31/2023 Time: 09:23 Bed 5 Private MD: LEILANI GILL ED Physician Ranjit Waldrop HPI: 10/30 12:07 This 43 yrs old Female presents to ER via Ambulatory with complaints of Nausea. rt 12:07 Patient presents to the ED with about 1 week of nausea, epigastric pain. This gets rt worse after eating, pain does not completely go away. Had a negative ultrasound 2 days ago of the gallbladder. Denies other acute complaints, symptoms are moderate severity, no other aggravating or alleviating factors.. COMPLIANCE PARALEGAL: 09:30 LMP N/A - Hysterectomy, Not aa5 Historical: - Allergies: 09:39 No Known Allergies; aa5 - PMHx: 09:39 Seizure; Hypothyroidism; aa5 - PSHx: 09:39 hysterectomy; Appendectomy; section; breast reduction; aa5 - Immunization history:: Adult Immunizations unknown. - Social history:: Smoking status: Reported history of juuling and/or vaping. - Family history:: not pertinent. ROS: 12:07 Constitutional: Negative for fever, chills, and weight loss, Cardiovascular: Negative rt for chest pain, palpitations, and edema, Respiratory: Negative for shortness of breath, cough, wheezing, and pleuritic chest pain, MS/Extremity: Negative for injury and deformity, Skin: Negative for injury, rash, and discoloration, Neuro: Negative for headache, weakness, numbness, tingling, and seizure, Psych: Negative for depression, anxiety, suicide ideation, homicidal ideation, and hallucinations, 12:07 Abdomen/GI: Positive for nausea, Negative for abdominal pain, Exam: 12:07 Constitutional: This is a well developed, well nourished patient who is awake, alert, rt and in no acute distress. Head/Face: Normocephalic, atraumatic. Chest/axilla: Normal chest wall appearance and motion. Nontender with no deformity. No lesions are appreciated. Cardiovascular: Regular rate and rhythm with a normal S1 and S2. No gallops, murmurs, or rubs. Normal PMI, no JVD. No pulse deficits. Respiratory: Lungs have equal breath sounds bilaterally, clear to auscultation and percussion. No rales, rhonchi or wheezes noted. No increased work of breathing, no retractions or nasal flaring. Abdomen/GI: Soft, non-tender, with normal bowel sounds. No distension or tympany. No guarding or rebound. No evidence of tenderness throughout. Skin: Warm, dry with normal turgor. Normal color with no rashes, no lesions, and no evidence of cellulitis. MS/ Extremity: Pulses equal, no cyanosis. Neurovascular intact. Full, normal range of motion. Neuro: Awake and alert, GCS 15, oriented to person, place, time, and situation. Cranial nerves II-XII grossly intact. Motor strength 5/5 in all extremities. Sensory grossly intact. Cerebellar exam normal. Normal gait. 12:07 Abdomen/GI: Mild tenderness to the right upper quadrant to epigastric region, no other focal areas of tenderness none, no guarding, distention, Vital Signs: 09:30 BP 128 / 82; Pulse 85; Resp 18 S; Temp 98.5(O); Pulse Ox 94% on R/A; Weight 108.86 kg aa5 (R); Height 5 ft. 6 in. (R); 09:50 BP 123 / 84; Pulse 83; Resp 15; Pulse Ox 99% ; ph 11:12 BP 112 / 85; Pulse 60; Resp 18; Pulse Ox 100% ; cp4 09:30 Body Mass Index 38.74 (108.86 kg, 167.64 cm) aa5 MDM: 09:39 Patient medically screened. rt 12:07 Differential diagnosis: gastritis, pancreatitis. Data reviewed: vital signs, nurses rt notes, lab test result(s), radiologic studies. I considered the following discharge prescriptions or medication management in the emergency department Medications were administered in the Emergency Department. See MAR. Independent interpretation of the following test(s) in the Emergency Department CT Scan: My interpretation is No bowel obstruction syndrome interpretation of CT scan images. Counseling: I had a detailed discussion with the patient and/or guardian regarding the historical points, exam findings, and any diagnostic results supporting the discharge/admit diagnosis, lab results, radiology results, the need for outpatient follow up, to return to the emergency department if symptoms worsen or persist or if there are any questions or concerns that arise at home. 03/28 09:45 Order name: CBC with Diff; Complete Time: 10:17 rt 10/30 09:45 Order name: CMP; Complete Time: 10:30 rt 10/30 09:45 Order name: Lipase; Complete Time: 10:30 rt 10/30 09:45 Order name: Urinalysis w/ reflexes; Complete Time: 10:17 rt 10/30 09:45 Order name: CT Abd/Pelvis - IV Contrast Only; Complete Time: 10:17 rt 10/30 09:45 Order name: IV Saline Lock; Complete Time: 10:05 rt 10/30 09:45 Order name: Labs collected and sent; Complete Time: 10:05 rt Administered Medications: 10:05 Drug: Ondansetron IVP 4 mg IVP once; over 2 minutes Route: IVP; Site: left antecubital; ph 11:12 Follow up: Response: No adverse reaction cp4 10:05 Drug: morphine IVP or IV 4 mg IVP once over 4 mins Route: IVP; Infused Over: 4 mins; ph Site: left antecubital; 11:13 Follow up: Response: No adverse reaction; Pain is decreased cp4 10:35 CANCELLED (in error): fentanyl (pf)50 mcg IVP once rt 10:35 CANCELLED (in error): ondansetron 4 mg IVP once; over 2 minutes rt Disposition Summary: 10/31/23 11:07 Discharge Ordered Notes: Location: Home rt Problem: new rt Symptoms: have improved rt Condition: Stable rt Diagnosis - Epigastric pain rt Followup: rt - With: Chris Hernanedz MD - When: 2 - 3 days - Reason: Discharge Instructions: - Discharge Summary Sheet rt - Abdominal Pain, Adult rt Forms: - Medication Reconciliation Form rt - Thank You Letter rt - Antibiotic Education rt - Prescription Opioid Use rt - Patient Portal Instructions rt - Leadership Thank You Letter rt Prescriptions: - ondansetron 4 mg Oral Tablet,disintegrating - take 1 tablet ORAL route every 6 hours as needed for nausea and vomiting; 18 rt tablet; Refills: 0, Product Selection Permitted - Protonix 40 mg Oral Tablet - take 1 tablet ORAL route once daily; 30 tablet; Refills: 0, Product Selection rt Permitted Signatures: Dispatcher [employer] Jocelyn Tello RN RN aa5 Darling Brizuela RN RN ph Ranjit Waldrop MD MD rt Ness Mckenzie cp4 Corrections: (The following items were deleted from the chart) 10:35 10:33 fentaNYL (PF) IVP 50 mcg IVP once ordered. rt rt 10:35 10:33 Ondansetron IVP 4 mg IVP once; over 2 minutes ordered. rt rt
--- NOTE | 2023-10-31 11:07 | ER ---
Nurse's Notes [facility] Name: Nancy Mckeon Age: 43 yrs Sex: Female : 1980 Arrival Date: 10/31/2023 Time: 09:23 Bed 5 Private MD: LEILANI GILL Diagnosis: Epigastric pain Presentation: 10/30 09:30 Chief complaint: Patient states: RUQ pain x 1 week with nausea, denies vomiting, aa5 reports diarrhea. Reports had abd US ordered by her PCP at [facility] recently. 09:30 Coronavirus screen: nausea. Ebola Screen: Patient denies travel to an Ebola-affected [place] in the 21 days before illness onset. Initial Sepsis Screen: Does the patient meet any 2 criteria? No. Patient's initial sepsis screen is negative. Does the patient have a suspected source of infection? No. Patient's initial sepsis screen is negative. Risk Assessment: Do you want to hurt yourself or someone else? Patient reports no desire to harm self or others. Onset of symptoms was October 2023. 09:30 Acuity: TESSIE 3 aa5 09:30 Method Of Arrival: Ambulatory aa5 RISK SPECIALIST: 09:30 LMP N/A - Hysterectomy, Not aa5 Historical: - Allergies: 09:39 No Known Allergies; aa5 - PMHx: 09:39 Seizure; Hypothyroidism; aa5 - PSHx: 09:39 hysterectomy; Appendectomy; section; breast reduction; aa5 - Immunization history:: Adult Immunizations unknown. - Social history:: Smoking status: Reported history of juuling and/or vaping. - Family history:: not pertinent. Screenin:50 [facility] ED Fall Risk Assessment (Adult) History of falling in the last 3 months, ph including since admission No falls in past 3 months (0 pts) Confusion or Disorientation No (0 pts) Intoxicated or Sedated No (0 pts) Impaired Gait No (0 pts) Mobility Assist Device Used No (0 pt) Altered Elimination No (0 pt) Score/Fall Risk Level 0 - 2 = Low Risk Oriented to surroundings, Maintained a safe environment, Educated pt \T\ family on fall prevention, incl call for assistance when getting out of bed, Assessed \T\ reinforced patient's understanding of fall precautions, Provided non-skid footwear, Hourly rounding (assess needs \T\ fall precautionary measures) done, Used ambulatory aids as needed (educated on \T\ assisted with), Used gait belt as appropriate. Abuse screen: Denies threats or abuse. Denies injuries from another. Nutritional screening: No deficits noted. Tuberculosis screening: No symptoms or risk factors identified. Assessment: 09:37 Reassessment: Received US results via fax sent by pt's PCP, Dr. Waldrop currently aa5 reviewing results. . 09:50 General: Appears in no apparent distress. uncomfortable, Behavior is calm, cooperative, ph appropriate for age. Pain: Complains of pain in abdomen. Neuro: No deficits noted. Cardiovascular: No deficits noted. Respiratory: No deficits noted. GI: Abdomen is obese, Reports nausea. : No deficits noted. EENT: No deficits noted. Derm: No deficits noted. Musculoskeletal: No deficits noted. Vital Signs: 09:30 BP 128 / 82; Pulse 85; Resp 18 S; Temp 98.5(O); Pulse Ox 94% on R/A; Weight 108.86 kg aa5 (R); Height 5 ft. 6 in. (R); 09:50 BP 123 / 84; Pulse 83; Resp 15; Pulse Ox 99% ; ph 11:12 BP 112 / 85; Pulse 60; Resp 18; Pulse Ox 100% ; cp4 09:30 Body Mass Index 38.74 (108.86 kg, 167.64 cm) aa5 ED Course: 09:25 Patient arrived in ED. rg4 09:26 LEILANI GILL is Private Physician. rg4 09:30 Arm band placed on. aa5 09:31 Ranjit Waldrop MD is Attending Physician. rt 09:41 Triage completed. aa5 09:50 Patient has correct armband on for positive identification. Placed in gown. Bed in low ph position. Call light in reach. Side rails up X 1. Pulse ox on. NIBP on. Door closed. Noise minimized. Lights dimmed. Warm blanket given. Assisted to bathroom. 09:50 Initial lab(s) drawn, by me, sent to lab. Urine collected: clean catch specimen, clear. ph Inserted saline lock: 22 gauge in left antecubital area, using aseptic technique. Blood collected. 10:05 Darling Brizuela RN is Primary Nurse. ph 10:05 CBC with Diff Sent. ph 10:05 CMP Sent. ph 10:05 Lipase Sent. ph 10:05 Urinalysis w/ reflexes Sent. ph 10:11 CT Abd/Pelvis - IV Contrast Only In Process Unspecified. EDMS 11:07 Chris Hernandez MD is Referral Physician. rt 11:18 Provided Education on: abdominal pain. cp4 11:18 No provider procedures requiring assistance completed. intact, bleeding controlled, No cp4 redness/swelling at site. Pressure dressing applied. Administered Medications: 10:05 Drug: Ondansetron IVP 4 mg IVP once; over 2 minutes Route: IVP; Site: left antecubital; ph 11:12 Follow up: Response: No adverse reaction cp4 10:05 Drug: morphine IVP or IV 4 mg IVP once over 4 mins Route: IVP; Infused Over: 4 mins; ph Site: left antecubital; 11:13 Follow up: Response: No adverse reaction; Pain is decreased cp4 10:35 CANCELLED (in error): fentanyl (pf)50 mcg IVP once rt 10:35 CANCELLED (in error): ondansetron 4 mg IVP once; over 2 minutes rt Medication: 09:50 VIS not applicable for this client. ph Outcome: 11:07 Discharge ordered by MD. rt 11:18 Discharged to home ambulatory, cp4 11:18 Condition: stable 11:18 Discharge instructions given to patient, Instructed on discharge instructions, follow up and referral plans. medication usage, Demonstrated understanding of instructions, follow-up care, medications, Prescriptions given X 2, 11:19 Patient left the ED. cp4 Signatures: Dispatcher [employer] EDND Jocelyn Fulton RN RN aa5 Darling Brizuela RN RN ph Eladia Rai rg4 Ranjit Waldrop MD MD rt Ness Mckenzie cp4
[2023-10-31 11:31] VITALS: BP 112/85; TEMP 98.5; O2SAT 100
== END 2023-10-31 11:19 | disposition home or self-care (01) ==
LOC: ER 09:23
DX: R10.13 Epigastric pain (principal); R11.0 Nausea
CPT/HCPCS: 85025; 81001; 36415; 83690; 80053; 74177; 96375; 96374; 99284; Q9967; J2405

== ENCOUNTER 2025-05-23 03:13 | Emergency (ER) | payer BC ==
--- OUTSIDE RECORDS SUMMARY | 2025-05-23 03:17 | XMS REPORT | Continuity of Care Document ---
Author Name Unknown Address [address] [place] [address] [facility] [place] Address [address] [place] [address] Care Team Providers Care Supervisor [employer] Name Role Phone Makayla Martinez Primary Care Physician [phone] Farooq Resendiz MD Attending Clinician [phone] FAROOQ RESENDIZ Attending Clinician Unavail able FAROOQ RESENDIZ Attending Clinician Unavail able CHINMAY DAY Attending Clinician Unavailable Fernando Louise Attending Clinician [phone] Chinmay Day MD Attending Clinician [phone] LEIDY DAVILA Attending Clinician Unavailable Leidy Davila MD Attending Clinician [phone] Doctor Unassigned, [place] Attending Clinician U DARREN Perez Attending Clinician Unavailable Jcarlos Caraballo DO Attending Clinician [phone] Darren Gore DO Attending Clinician [phone] Jimbo Jackson MD Attending Clinicia n Jonny Snow MD Attending Clinician [phone] Radiology Attending Clinician Unavailable RADIOLOGY Attending Clinician Unavailable Amy Curiel NP Attending Clinician FERNANDO LAZCANO Admitting Clinician Unavailable DARREN GORE Admitting Clinician Unavailable Darren Gore DO Admitting Clinician [phone] Payers Payer Name Policy Type Policy Number Effective Date Expirati on Date Source COMMERCIAL NON-CONTRACT GENERIC [id number] 2016 00:00:00 Problems Condition Name Condition Details Condition Category Status Onset Date Resolution Date Last Treatment Date Treating Clinician Comments Source Acute appendicit is Acute appendicit is Disease Active 2021-08 00:00: 00 [facility] Obesity (BMI 30-39.9) Obesity (BMI 30-39.9) Disease Active 2021-08 00:00: 00 [facility] Right lower quadrant abdominal pain Right lower quadrant abdominal pain Disease Active 2021-08 00:00: 00 Overview: Formattin g of this note might be different from the original. Added automatic ally from request for surgery [id number] [facility] No known active problems No known active problems Disease [facility] Allergies, Adverse Reactions, Alerts Allergy Name Allergy Type Status Severity Reaction(s) Onset Date Inactive Date Treating Clinician Comments Source NO KNOWN ALLERGIE S Drug Class Active [facility] Social History Social Habit Start Date Stop Date Quantity Comments Source [facility] of tobacco use Cigarette Smoker [facility] ASSERTION Possible [facility] Alcoholic beverage intake 2025-03-15 00:00:00 2025-03-15 00:00:00 Ex-drinker (finding) [facility] Exposure to SARS-CoV-2 (event) 2022-06-15 00:00:00 2022-06-25 08:31:00 Not sure [facility] Alcohol intake 2022-06-25 00:00:00 2022-06-25 00:00:00 Current drinker of alcohol (finding) [facility] History of Social function 2022-06-10 00:00:00 2022-06-10 00:00:00 [facility] Tobacco use and exposure 2022-06-09 00:00:00 2022-06-09 00:00:00 Smokeless tobacco non-user [facility] Education 2022-06-09 00:00:00 2022-06-09 00:00:00 13 [facility] Sex assigned at 1980 00:00:00 1980 00:00:00 [facility] Smoking Status Start Date Stop Date Source Ex-smoker 2022-06-09 00:00:00 2022-06-09 [facility]00[facility] Medications Ordered Medication Name Filled Medication Name Start Date Stop Date Current Medication? Ordering Clinician Indication Dosage Frequency Signature (SIG) Comments Components Source topiramate (TOPAMAX) 100 mg tablet 03-25 00:00: 00 Yes [id number] 100mg Take 1 tablet by mouth in the morning and 1 tablet in the evening. [facility] citalopram 40 mg tablet 03-15 09:47: 37 Yes 40mg Take 1 tablet by mouth in the morning. [facility] buPROPion SR 100 mg SR tablet 03-15 09:47: 37 Yes 100mg Take 1 tablet by mouth in the morning and 1 tablet in the evening. [facility] lamoTRIgine 25 mg tablet 03-15 09:47: 37 Yes 25mg Take 1 tablet by mouth in the morning. [facility] denosumab 60 mg/mL injection 03-15 09:47: 37 Yes 60mg inject 1 mL under the skin every 6 months. [facility] omeprazole 40 mg capsule 03-15 09:46: 20 03-15 00:00 :00 No 40mg Take 40 mg by mouth in the morning. [facility] pantoprazol e 40 mg EC tablet 03-15 09:46: 15 Yes 40mg Take 1 tablet by mouth in the morning. [facility] rosuvastati n 5 mg tablet 03-15 09:46: 15 Yes 5mg Take 1 tablet by mouth in the morning. [facility] traZODone 50 mg tablet 03-15 09:46: 15 Yes 25mg Take 0.5 tablets by mouth in the morning. [facility] sucralfate 1 gram tablet 02-25 00:00: 00 Yes 1g Take 1 tablet by mouth before meals and at bedtime. [facility] acetaminoph en-codeine (TYLENOL #3) 300-30 mg tablet 1 tablet 2021-08 19:00: 00 06-11 18:36 :00 No 1{tbl} 1 tablet, Oral, ONCE, 1 dose, On Sat06/11/22 at 1300, Routine [facility] omeprazole (PRILOSEC) capsule 40 mg 2021-08 15:00: 00 Yes 40mg 40 mg, Oral, DAILY, First dose on Sat06/11/22 at 0900, Until Discontinu ed [facility] buPROPion SR 100 mg SR tablet 2021-08 13:07: 21 Yes 100mg Take 100 mg by mouth in the morning and 100 mg in the evening. [facility] lamoTRIgine 25 mg tablet 2021-08 13:07: 21 Yes 25mg Take 25 mg by mouth in the morning. [facility] omeprazole 40 mg capsule 2021-08 13:07: 21 Yes 40mg Take 40 mg by mouth in the morning. [facility] citalopram 40 mg tablet 2021-08 13:07: 21 Yes 40mg Take 40 mg by mouth in the morning. [facility] Thyroid, Pork, (ARMOUR THYROID) 90 mg tablet 2021-08 13:07: 21 Yes Take by mouth. [facility] topiramate 50 mg Cp24 2021-08 13:07: 21 03-25 00:00 :00 No Take by mouth. [facility] thyroid (ARMOUR THYROID) tablet 30 mg 2021-08 12:00: 00 Yes 30mg 30 mg, Oral, QAM-0600, First dose on Sat06/11/22 at 0600, Until Discontinu ed [facility] citalopram (CELEXA) tablet 40 mg 2021-08 03:00: 00 Yes 40mg 40 mg, Oral, QHS, First dose (after last modificati on) on Sat06/10/22 at 2100, Until Discontinu ed, Routine [facility] HYDROcodone -acetaminop hen (NORCO 5) 5-325 mg tablet 1 tablet 2021-08 01:14: 43 Yes 1{tbl} 1 tablet, Oral, Q6HPRN, Starting on Sat06/10/22 at 1914, Until Discontinu ed, Routine, Pain (scale 4-6) [facility] morpHINE (2 mg/mL) injection 4 mg 2021-08 01:14: 13 06-12 01:13 :13 No 4mg 4 mg, Slow IV Push, Q4HPRN, Starting on 06/10/22 at 1914, Until 06/11/22 at 1913, Routine, Pain (scale 7-10) [facility] ondansetron (ZOFRAN (PF)) injection 4 mg 2021-08 00:31: 11 Yes 4mg 4 mg, Slow IV Push, Q6HPRN, Nausea and Vomiting (N/V), Starting on Sat06/10/22 at 1831
Do ses of ondansetro n 16 mg and above need to be administer ed via IV piggyback. For Dose >=24mg ECG monitoring is advisable.
[facility] acetaminoph en-codeine 300-30 mg tablet 2021-08 00:00: 00 06-19 05:59 :00 No [id number] 1{tbl} Take 1 tablet by mouth every 4 (four) hours as needed for Pain (scale 7-10) for up to 7 days. Indication s: acute pain [facility] lidocaine 1% (PF) (XYLOCAINE) injection 2021-08 22:38: 00 06-10 23:46 :17 No PRN, Starting on Sat06/10/22 at 1638, Until Sat06/10/22 at 1746, Routine, Intra-op [facility] sodium chloride 0.9 % irrigation solution 2021-08 22:38: 00 06-10 23:46 :17 No PRN, Starting on 06/10/22 at 1638, Until 06/10/22 at 1746, Intra-op [facility] dexamethaso ne (DECADRON PHOSPHATE) injection 2021-08 22:38: 00 06-10 23:39 :37 No IV Push, ONCE INTRA PROCEDURE, Starting on 06/10/22 at 1638, Until 06/10/22 at 1739, Routine, Intra-op [facility] glycopyrrol ate (ROBINUL) injection 2021-08 22:30: 00 06-10 23:39 :37 No Intravenou s, ONCE INTRA PROCEDURE, Starting on 06/10/22 at 1630, Until 06/10/22 at 1739, Routine, Intra-op [facility] ePHEDrine 25 mg/5 mL (5 mg/mL) syringe 2021-08 22:30: 00 06-10 23:39 :37 No Intravenou s, ONCE INTRA PROCEDURE, Starting on 06/10/22 at 1630, Until 06/10/22 at 1739, Routine, Intra-op [facility] PHENYLephri ne 1000 mcg/10 mL in 0.9% NaCl syringe 2021-08 22:23: 00 06-10 23:39 :37 No Slow IV Push, CONTINUOUS PRN, Starting on 06/10/22 at 1623, Until 06/10/22 at 1739, Routine, Intra-op [facility] rocuronium (ZEMURON) injection 2021-08 22:22: 00 06-10 23:39 :37 No IV Push, ONCE INTRA PROCEDURE, Starting on 06/10/22 at 1622, Until 06/10/22 at 1739, Routine, Intra-op [facility] succinylcho line (QUELICIN) injection 2021-08 22:17: 00 06-10 23:39 :37 No IV Push, ONCE INTRA PROCEDURE, Starting on 06/10/22 at 1617, Until 06/10/22 at 1739, Routine, Intra-op [facility] FENTanyl PF (SUBLIMAZE (PF)) injection 2021-08 22:17: 00 06-10 23:39 :37 No Intravenou s, ONCE INTRA PROCEDURE, Starting on 06/10/22 at 1617, Until 06/10/22 at 1739, Routine, Intra-op [facility] lidocaine 1% (XYLOCAINE) 100 mg/10 mL (1 %) injection 2021-08 22:17: 00 06-10 23:39 :37 No Intravenou s, ONCE INTRA PROCEDURE, Starting on 06/10/22 at 1617, Until 06/10/22 at 1739, Routine, Intra-op [facility] propofoL IV infusion 2021-08 22:17: 00 06-10 23:39 :37 No Intravenou s, ONCE INTRA PROCEDURE, Starting on 06/10/22 at 1617, Until 06/10/22 at 1739, Routine, Intra-op [facility] midazolam (VERSED) injection 2021-08 22:12: 00 06-13 15:14 :51 No IV Push, ONCE INTRA PROCEDURE, Starting on 06/10/22 at 1612, Until Sat06/13/22 at 0914, Routine, Intra-op [facility] lactated ringers IV infusion 2021-08 22:11: 00 06-10 23:39 :37 No Intravenou s, CONTINUOUS PRN, Starting on 06/10/22 at 1611, Until 06/10/22 at 1739, Routine, Intra-op [facility] ondansetron (ZOFRAN (PF)) injection 4 mg 2021-08 22:00: 00 06-10 21:20 :00 No 4mg 4 mg, Slow IV Push, ONCE, On 06/10/22 at 1600, For 1 dose
Do ses of ondansetro n 16 mg and above need to be administer ed via IV piggyback. For Dose >=24mg ECG monitoring is advisable.
[facility] topiramate (TOPAMAX) tablet 100 mg 2021-08 18:30: 00 Yes 100mg 100 mg, Oral, QAM, First dose on 06/10/22 at 1230, Until Discontinu ed
Facu lty member approving Restricted medication : ESTIVEN CHOI [facility] acetaminoph en (TYLENOL) tablet 650 mg 2021-08 17:28: 01 Yes 650mg 650 mg, Oral, Q6HPRN, Starting on 06/10/22 at 1128, Until Discontinu ed, Routine, Pain (scale 1-3) [facility] buPROPion SR (WELLBUTRIN SR) tablet 300 mg 2021-08 17:00: 00 Yes 300mg 300 mg, Oral, DAILY, First dose (after last modificati on) on 06/10/22 at 1100, Until Discontinu ed, Routine [facility] enoxaparin (LOVENOX) injection 40 mg 2021-08 15:00: 00 Yes 40mg 40 mg, Subcutaneo us, DAILY, First dose on 06/10/22 at 0900, Until Discontinu ed, Routine [facility] piperacilli n-tazobacta m (ZOSYN) 3.375 g in NaCl 0.9% (NS) 50 mL MINI-BAG 2021-08 10:00: 00 06-17 09:59 :00 No 3.375g 3.375 g, IV Piggyback, Q8H ABX, 21 doses, First dose (after last modificati on) on 06/10/22 at 0400, Last dose on Sat06/16/22 at 2000, Administer over 240 Minutes, 50 mL
Reas on for Anti-Infec tive: Documented Infection< br>Documen dereje Infection Site: Abdominal< br>Duratio n of Therapy: 7 days [facility] lamoTRIgine (LAMICTAL) tablet 50 mg 2021-08 05:00: 00 Yes 50mg 50 mg, Oral, QHS, First dose (after last modificati on) on 06/10/22 at 0000, Until Discontinu ed, Routine [facility] piperacilli n-tazobacta m (ZOSYN) 3.375 g in NaCl 0.9% (NS) 50 mL MINI-BAG 2021-08 01:00: 00 06-10 00:44 :00 No 3.375g 3.375 g, IV Piggyback, ONCE, 1 dose, On 06/09/22 at 2000, Administer over 30 Minutes, 50 mL
Reas on for Anti-Infec tive: Documented Infection< br>Documen dereje Infection Site: Abdominal< br>Duratio n of Therapy: [address] [facility] ketorolac (TORADOL) injection 30 mg 2021-08 00:15: 00 06-09 23:23 :00 No 30mg 30 mg, Slow IV Push, ONCE, 1 dose, On 06/09/22 at 1915, Routine [facility] lactated ringers IV infusion 1,000 mL 2021-08 00:00: 00 06-10 23:38 :16 No 1000mL at 100 mL/hr, 1,000 mL, IV Infusion, CONTINUOUS , Starting on 06/09/22 at 1900, Until 06/10/22 at 1738, Routine [facility] ondansetron (ZOFRAN (PF)) injection 4 mg 2021-08 23:57: 18 06-10 21:15 :05 No 4mg 4 mg, Slow IV Push, Q6HPRN, Starting on 06/09/22 at 1857, Until 06/10/22 at 1515, DONAL, Nausea and Vomiting (N/V) [facility] morpHINE (2 mg/mL) injection 4 mg 2021-08 23:56: 25 06-11 00:55 :25 No 4mg 4 mg, Slow IV Push, Q4HPRN, Starting on 06/09/22 at 1856, Until 06/10/22 at 1855, Routine, Pain (scale 7-10) [facility] NaCl 0.9% (NS) bolus infusion 1,000 mL 2021-08 22:30: 00 06-09 23:24 :00 No 1000mL at 999 mL/hr, 1,000 mL, IV Infusion, ONCE, 1 dose, On 06/09/22 at 1730, DONAL [facility] iopamidol (ISOVUE 370-500 mL) injection 100 mL 2021-08 21:57: 00 06-09 22:15 :00 No [id number] 100mL 100 mL, Intravenou s, ONCE, 1 dose, On 06/09/22 at 1715, Routine [facility] ondansetron (ZOFRAN (PF)) injection 4 mg 2021-08 21:45: 00 06-09 21:47 :00 No 4mg 4 mg, Slow IV Push, ONCE, 1 dose, On 06/09/22 at 1645, DONAL [facility] morpHINE (4 mg/mL) injection 4 mg 2021-08 21:45: 00 06-09 21:47 :00 No 4mg 4 mg, Slow IV Push, ONCE, 1 dose, On 06/09/22 at 1645, STAT [facility] ETONOGESTRE L-ETHINYL ESTRADIOL 0.12-0.015 MG/24 HR VAGINAL RING 09-16 00:00: [address] one ring in vagina for 3 weeks, then remove for 1 week [facility] IBUPROFEN 800 MG ORAL TAB 09-16 00:00: 00 Yes take 1 tab PO q4-6 hrs [facility] GABAPENTIN 300 MG ORAL CAP 09-16 00:00: 00 06-11 00:00 :00 No 1 tab three times daily [facility] AMITRIPTYLI NE 25 MG ORAL TAB 09-16 00:00: 00 06-11 00:00 :00 No Take one tab daily [facility] Vital Signs Vital Name Observation Time Observation Value Comments S ource Systolic blood pressure 2025-03-15 14:45:00 118 mm[Hg] [facility] Diastolic blood pressure 2025-03-15 14:45:00 80 mm[Hg] [facility] Heart rate 2025-03-15 14:45:00 84 /min [facility] Respiratory rate 2025-03-15 14:45:00 18 /min [facility] Body height 2025-03-15 14:45:00 167.6 cm [facility] Body weight 2025-03-15 14:45:00 105.96 kg Univ [facility] BMI 2025-03-15 14:45:00 37.70 kg/m2 [facility] Oxygen saturation in Arterial blood by Pulse oximetry 2025-03-15 14:45:00 98 /min [facility] Systolic blood pressure 2023-10-29 22:03:00 147 mm[Hg] [facility] Diastolic blood pressure 2023-10-29 22:03:00 104 mm[Hg] [facility] Heart rate 2023-10-29 22:03:00 98 /min [facility] Body temperature 2023-10-29 22:03:00 36.78 Jaimee [facility] Respiratory rate 2023-10-29 22:03:00 14 /min [facility] Body height 2023-10-29 22:03:00 167.6 cm [facility] Body weight 2023-10-29 22:03:00 110.904 kg [facility] BMI 2023-10-29 22:03:00 39.46 kg/m2 [facility] Oxygen saturation in Arterial blood by Pulse oximetry 2023-10-29 22:03:00 100 /min [facility] Systolic blood pressure 2022-06-25 14:58:00 103 mm[Hg] [facility] Diastolic blood pressure 2022-06-25 14:58:00 72 mm[Hg] [facility] Heart rate 2022-06-25 14:58:00 91 /min [facility] Body height 2022-06-25 14:58:00 167.6 cm [facility] Body weight 2022-06-25 14:58:00 99.156 kg [facility] BMI 2022-06-25 14:58:00 35.28 kg/m2 [facility] Oxygen saturation in Arterial blood by Pulse oximetry 2022-06-25 14:58:00 99 /min [facility] Systolic blood pressure 2022-06-11 17:24:00 104 mm[Hg] [facility] Diastolic blood pressure 2022-06-11 17:24:00 67 mm[Hg] [facility] Heart rate 2022-06-11 17:24:00 83 /min [facility] Body temperature 2022-06-11 17:24:00 36.22 Jaimee [facility] Respiratory rate 2022-06-11 17:24:00 18 /min [facility] Oxygen saturation in Arterial blood by Pulse oximetry 2022-06-11 17:24:00 96 /min [facility] Body weight 2022-06-11 09:25:00 99.973 kg [facility] BMI 2022-06-11 09:25:00 35.57 kg/m2 [facility] Body height 2022-06-09 21:19:00 167.6 cm [facility] Systolic blood pressure 2022-06-10 20:37:00 108 mm[Hg] [facility] Diastolic blood pressure 2022-06-10 20:37:00 68 mm[Hg] [facility] Heart rate 2022-06-10 20:37:00 84 /min [facility] Body temperature 2022-06-10 20:37:00 36.78 Jaimee [facility] Respiratory rate 2022-06-10 20:37:00 18 /min [facility] Oxygen saturation in Arterial blood by Pulse oximetry 2022-06-10 20:37:00 96 /min [facility] Body weight 2022-06-10 09:23:00 98.476 kg [facility] BMI 2022-06-10 09:23:00 35.57 kg/m2 [facility] Body height 2022-06-09 21:19:00 167.6 cm [facility] Systolic blood pressure 2020-09-15 23:00:00 128 mm[Hg] [facility] Diastolic blood pressure 2020-09-15 23:00:00 82 mm[Hg] [facility] Heart rate 2020-09-15 23:00:00 97 /min [facility] Respiratory rate 2020-09-15 23:00:00 17 /min [facility] Oxygen saturation in Arterial blood by Pulse oximetry 2020-09-15 23:00:00 98 /min [facility] Body temperature 2020-09-15 19:49:00 36.67 Jaimee [facility] Body weight 2020-09-15 19:49:00 72.576 kg [facility] Procedures Procedure Date / Time Performed Performing Clinician Source US GALL BLADDER 2023-10-29 23:48:22 Fernando Lazcano [facility] ASSIGNMENT OF BENEFITS 2022-06-25 14:32:23 Docto r Unassigned, [place] [facility] INTUBATION 2022-06-10 22:20:00 Jimbo Corrales [facility] LAPAROSCOPIC APPENDECTOMY 2022-06-10 21:53:00 Edy [facility] LAPAROSCOPIC APPENDECTOMY 2022-06-10 21:53:00 Edy ori [facility] COVID-19 (ID NOW RAPID TESTING) 2022-06-10 19:15:00 [facility] INTERPRETATION 2022-06-10 19:15:[facility] (ID NOW RAPID TESTING) 2022-06-10 19:15:00 Migel [facility] LAB ONLY COVID INTERPRETATION 2022-06-10 19:15:00 [facility] MRSA / MSSA SCREEN BY PCR, LISA 2022-06-10 04:32:00 Darren Gore [facility] MRSA / MSSA SCREEN BY PCR, LISA 2022-06-10 04:32:00 Darren Gore [facility] CT ABDOMEN PELVIS W CONTRAST 2022-06-09 22:07:20 Ilya, CarlMeliton [facility] CT ABDOMEN PELVIS W CONTRAST 2022-06-09 22:07:20 IlyaJcarlos benites [facility] LIPASE 2022-06-09 21:42:00 Ilya, [facility] HEPATIC FUNCTION PANEL ([id number]) (ALB,T.PRO,BILI T,BU/BC,ALT,AST,ALK PHOS) 2022-06-09 21:42:00 Ilya, [facility] BASIC METABOLIC PANEL (NA, K, CL, CO2, GLUCOSE, BUN, CREATININE, CA) 2022-06-09 21:42:00 Ilya, [facility] CBC WITH DIFF 2022-06-09 21:42:00 [facility] 2022-06-09 21:42:00 Ilya, [facility] LIPASE 2022-06-09 21:42:00 Ilya, [facility] HEPATIC FUNCTION PANEL ([id number]) (ALB,T.PRO,BILI T,BU/BC,ALT,AST,ALK PHOS) 2022-06-09 21:42:00 Ilya, [facility] BASIC METABOLIC PANEL (NA, K, CL, CO2, GLUCOSE, BUN, CREATININE, CA) 2022-06-09 21:42:00 Ilya, [facility] CBC WITH DIFF 2022-06-09 21:42:00 Ilya, [facility] URINALYSIS 2022-06-09 21:42:00 Ilya, [facility] CONSENT/REFUSAL FOR DIAGNOSIS AND TREATMENT 2022-06-09 21:15:50 Doctor Unassigned, [place] [facility] CONSENT/REFUSAL FOR DIAGNOSIS AND TREATMENT 2022-06-09 21:15:50 Doctor Unassigned, [place] [facility] XR ELBOW >3 VW BILATERAL 2020-12-12 19:23:18 Ashley Morey [facility] XR HAND 3+ VW BILATERAL 2020-12-12 19:23:18 Juan More [facility] XR WRIST 3+ VW BILATERAL 2020-12-12 19:23:18 Ashley More rry [facility] PATIENT FINANCIAL POLICY 2020-12-12 18:37:33 Doctor Unassigned, [place] [facility] NO SHOW OR MISSED APPOINTMENT POLICY ACKNOWLEDGEMENT 2020-12-12 18:37:09 Doctor Unassigned, [place] [facility] NOTICE OF PRIVACY PRACTICES 2020-12-12 18:36:49 Doctor Unassigned, [place] [facility] CONSENT/REFUSAL FOR DIAGNOSIS AND TREATMENT 2020-12-12 18:36:33 Doctor Unassigned, [place] [facility] ASSIGNMENT OF BENEFITS 2020-12-12 18:36:17 Docto r Unassigned, [place] [facility] ASSIGNMENT OF BENEFITS 2020-12-12 18:36:12 Docto r Unassigned, [place] [facility] UNILATERAL VENOUS DUPLEX LOWER EXTREMITY BY VASCULAR LAB 2020-09-15 21:12:05 Dexter Courtney [facility] NOTICE OF PRIVACY PRACTICES 2020-09-15 19:41:16 Doctor Unassigned, [place] [facility] Encounters Start Date/Time End Date/Time Encounter Type Admission Type Attending [facility] Care Facility Care Department Encounter ID Source 2025-04-15 00:00:00 2025-04-16 15:19:12 Telephone Martín Farooq [facility] [id number] [facility] 2025-03-24 00:00:00 2025-03-25 09:21:48 Telephone Farooq Resendiz [facility] [id number] [facility] 2025-03-17 00:00:00 2025-03-18 10:18:42 Patient Secure Farooq [facility] MEDICAL OFFICE BUILDING 1.114 350.1.13.10 4.2.7.2.686 [id number] [facility] 2025-03-15 09:30:00 2025-03-15 10:45:22 Office Visit [facility] 1.114 350.1.13.10 4.2.7.2.686 [id number] [facility] 2023-10-29 17:05:00 2023-10-29 20:58:00 Emergency X [facility] ERT [id number] [facility] 2023-10-29 17:05:00 2023-10-29 20:58:00 Emergency [place], Fernando [facility] 1.114 350.1.13.10 4.2.7.2.686 [id number] [facility] 2022-06-25 08:45:00 2022-06-25 09:22:41 Outpatient R LEIDY DAVILA [facility] [id number] [facility] 2022-06-25 08:45:00 2022-06-25 09:22:41 Office Visit Leidy Davila [facility] NAL BUILDING 1.114 350.1.13.10 4.2.7.2.686 [id number] [facility] 2022-06-25 00:00:00 2022-06-25 00:00:00 Orders Only Doctor Unassigned, Elon [facility] 1.114 350.1.13.10 4.2.7.2.686 [id number] [facility] 2022-06-09 16:24:00 2022-06-11 13:05:00 Outpatient X [facility]ARREN GORE [facility] [id number] [facility] 2022-06-09 16:24:00 2022-06-11 13:05:00 Emergency Carl CaraballoCarolMarlon Darren Gore [facility] 1.2.840.114 350.1.13.10 4.2.7.2.686 [id number] [facility] 2022-06-10 16:11:00 2022-06-10 17:39:00 Anesthesia Event Jimbo Tavarez [facility] 1.2.840.114 350.1.13.10 4.2.7.2.686 [id number] [facility] 2022-06-10 15:00:00 2022-06-10 16:59:00 Surgery Jonny Snow [facility] 1.2.840.114 350.1.13.10 4.2.7.2.686 [id number] [facility] 2020-12-12 13:34:50 2020-12-12 23:59:00 Hospital Encounter Radiology [facility] 1.2.840.114 350.1.13.10 4.2.7.2.686 [id number] [facility] 2020-12-12 00:00:00 2020-12-12 00:00:00 Outpatient R RADIOLOGY [facility] [id number] [facility] 2020-09-15 13:51:00 2020-09-15 17:11:00 Emergency Amy Curiel [facility] 1.2.840.114 350.1.13.10 4.2.7.2.686 [id number] [facility] 2020-09-15 13:41:00 2020-09-15 13:41:00 Emergency X [facility] ERT [id number] [facility] Results Test Description Test Time Test [...] to ascites. Right kidney was sonographically examined. [facility] XR WRIST 3+ VW BILATERAL 20:51:35 No [...] right or left andelbow.RL: 5611END OF REPORT [facility] XR HAND 3+ VW BILATERAL 20:51:35 No [...] noerosions. There are no subluxation. No chondrocalcinosis. [facility], Radiant Results Inft User - 12/12/2020 3:52 PM CDTOrdering Physician: DANIELLE Schmittinical Indication: ELBOW [...] right or left andelbow.RL: 5611END OF REPORT [facility] XR ELBOW >3 VW BILATERAL 20:51:35 No [...] - 12/12/2020 3:53 PM CDTOrdering Physician: DANIELLE MOREClinical Indication: ELBOW [...] right or left andelbow.RL: 5611END OF REPORT [facility] Notes Date/Time Note Provider Source 2025-04-24 15:51:32 Will have to solve this problem when I return. [facility] 2025-04-16 13:43:13 Neurology has been working with Topiramate. We are not responsible for lamictal. Another provider must have given it to her, they might check with Clau Duarte about that. [facility] 2025-04-15 12:30:24 Spoke with Clau who stated Dr. Chambers will not scope pt while pt is still taking the Lamictal. She stated they sent pt over for evaluation of seizures and advisement on stopping Lamictal (prescribed by Bipolar but also being used for seizures). Clau requesting a call back regarding this. Quinton Rincon LVN [facility] 2025-04-15 11:49:51 Copied from [facility] #[id number]. Topic: Clinical - Paperwork/Forms >> Apr 15, 2025 11:44 AM Patient Cell Attendant wrote: DR VILLA office requesting a call back regarding message that was sent to patient. They want to go over more details Clau (FARZANEH) P: [phone] Jojo Pope [facility] 2025-03-25 09:20:42 Per DANNY : Increase Topiramate to 100 mg BID. Requested Prescriptions Signed Prescriptions Disp Refills topiramate (TOPAMAX) 100 mg tablet 60 tablet 2 Sig: Take 1 tablet by mouth in the morning and 1 tablet in the evening. Authorizing Provider: FAROOQ RESENDIZ Ordering User: QUINTON RINCON message previously sent regarding Lamictal. [facility] 2025-03-24 16:24:13 Copied from [facility] #[id number]. Topic: Clinical - Order >> Mar 24, 2025 4:18 PM Patient Cell Attendant wrote: Angelo Cathikenneth Brandtkesha (44 year old female) is calling to request refill(s) for Topamax-on the new higher dose that pt has been taking. Pt also needs to inquire about stopping the Lamictal 5 days prior to upper GI Please send medication(s) to: [facility] [address] [place] [id number] Thank you! Jing Quiñones [facility] 2025-03-19 15:48:06 From a neuro standpoint, no contraindication. Maybe there was concern about sedating medicines given for the procedure? PN-NEUROLOGY STAFF [facility] 2025-03-19 15:43:58 From a neuro standpoint, no contraindication. Maybe there was concern about sedating medicines given for the procedure? [facility] 2023-10-29 20:51:23 Pt announced to PFS she is leaving. No AMA form signed. Testing pending. Angelo Thomas RN [facility] 2023-10-29 17:03:00 Angelo Mckeon is a 43 year old female c/o RUQ pain x 1 week, no emesis no fever, Hazel Melara RN [facility]
[2025-05-23 04:10] LABS: Sqamous Epithelial <5 /HPF (None Seen); Urine Micro Reflex YN NO BILL MICROSCOPIC
[2025-05-23 04:13] LABS: Absolute Lymphocytes (CBC) 3.1 K/uL (0.7-4.9); Hematocrit 37.0 % (36.0-45.0); Hemoglobin 12.0 g/dL (12.0-15.0); MCH 26.9 pg (27.0-35.0); MCHC 32.4 g/dL (32.0-36.0); MCV 83.0 fL (80-100); MPV 9.4 fL (7.6-11.3); Nucleated RBC Absolute Count 0.0 (0-0); Nucleated Red Blood Cells % 0.0 % (0-0); RBC Red Blood Cell Count 4.46 M/uL (3.86-4.86); White Blood Count 7.40 thou/uL (4.3-10.9)
[2025-05-23 04:21] LABS: PT Prothrombin Time 12.1 SECONDS (10-13.0); Protime INR 1.07
[2025-05-23 04:27] LABS: D-Dimer < 0.215 FEUug/mL (0-0.500)
[2025-05-23 04:31] LABS: ALT/SGPT 28 U/L (13-56); AST/SGOT 14 U/L (15-37); Albumin 3.5 g/dL (3.4-5.0); Albumin/Globulin Ratio 1.1 (1.1-1.8); Alkaline Phosphatase 59 U/L (45-117); Anion Gap 8.6 mEq/L (5.0-15.0); BUN Blood Urea Nitrogen 15 mg/dL (7-18); Bilirubin Indirect, Calculated 0.0 mg/dL (0.2-0.8); Globulin 3.3 g/dL (2.3-3.5); Glucose Level 121 mg/dL (74-106); Magnesium 2.2 mg/dL (1.6-2.4); NT PRO-BNP 17 pg/mL (<125); Potassium 3.6 mEq/L (3.5-5.1); Thyroid Stimulating Hormone 1.210 uIU/mL (0.358-3.740); Troponin High Sensitivity < 3.0 pg/mL (<58.9)
--- NOTE | 2025-05-23 06:11 | ER ---
Nurse's Notes [facility] Name: Nancy Mckeon Age: 44 yrs Sex: Female : 1980 Arrival Date: 05/23/2025 Time: 03:13 Bed 7 Private MD: LEILANI GILL Diagnosis: Bilateral lower extremity mild edema;Hypothyroidism Presentation: 05/23 03:28 Chief complaint: Patient states: swelling in legs and feet bilaterally x2 days, pain af3 6/10, Nausea started this afternoon. Coronavirus screen: At this time, the client does not indicate any symptoms associated with coronavirus-19. Ebola Screen: No symptoms or risks identified at this time. Initial Sepsis Screen: Does the patient meet any 2 criteria? No. Patient's initial sepsis screen is negative. Does the patient have a suspected source of infection? No. Patient's initial sepsis screen is negative. Risk Assessment: Do you want to hurt yourself or someone else? Patient reports no desire to harm self or others. Onset of symptoms was May 21, 2025. 03:28 Method Of Arrival: Ambulatory af3 03:28 Acuity: TESSIE 3 af3 Triage Assessment: 03:31 General: Appears in no apparent distress. comfortable, well groomed, well developed, af3 Behavior is calm, cooperative, appropriate for age. Pain: Complains of pain in right leg and left leg Pain currently is 6 out of 10 on a pain scale. Neuro: Level of Consciousness is awake, alert, obeys commands, Oriented to person, place, time, situation, Appropriate for age. Cardiovascular: Patient's skin is warm and dry. Respiratory: Airway is patent Respiratory effort is even, unlabored, Respiratory pattern is regular, symmetrical. Historical: - Allergies: 03:31 Flexeril; af3 03:31 Ultram; af3 - PMHx: 03:31 Gastroesophageal reflux disease; Hypothyroidism; Seizure; af3 - PSHx: 03:31 Appendectomy; breast reduction; section; Cholecystectomy; hysterectomy; af3 - Immunization history:: Adult Immunizations not up to date. - Infectious Disease History:: Denies. - Social history:: Smoking status: Patient denies any tobacco usage or history of. - Family history:: not pertinent. Screenin:[address] [facility] ED Fall Risk Assessment (Adult) History of falling in the last 3 months, af3 including since admission No falls in past 3 months (0 pts) Confusion or Disorientation No (0 pts) Intoxicated or Sedated No (0 pts) Impaired Gait No (0 pts) Mobility Assist Device Used No (0 pt) Altered Elimination No (0 pt) Score/Fall Risk Level 0 - 2 = Low Risk Oriented to surroundings, Maintained a safe environment, Educated pt \T\ family on fall prevention, incl call for assistance when getting out of bed. Abuse screen: Denies threats or abuse. Denies injuries from another. Nutritional screening: No deficits noted. Tuberculosis screening: No symptoms or risk factors identified. Assessment: 03:33 General: see triage assessment . af3 04:56 Reassessment: Patient appears in no apparent distress at this time. Patient and/or af3 family updated on plan of care and expected duration. Pain level reassessed. Patient is alert, oriented x 3, equal unlabored respirations, skin warm/dry/pink. blanket provided to pt . 05:30 Reassessment: Patient appears in no apparent distress at this time. Patient and/or af3 family updated on plan of care and expected duration. Pain level reassessed. Patient is alert, oriented x 3, equal unlabored respirations, skin warm/dry/pink. 06:44 Reassessment: Patient appears in no apparent distress at this time. Patient and/or af3 family updated on plan of care and expected duration. Pain level reassessed. Patient is alert, oriented x 3, equal unlabored respirations, skin warm/dry/pink. Vital Signs: 03:28 BP 142 / 94; Pulse 80; Resp 18; Temp 97.7; Pulse Ox 100% on R/A; Weight 99.79 kg; af3 Height 5 ft. 6 in. ; Pain 6/10; 04:56 BP 138 / 85; Pulse 80; Resp 18; Pulse Ox 100% on R/A; af3 05:30 BP 132 / 90; Pulse 91; Resp 18; Pulse Ox 98% on R/A; af3 06:44 BP 132 / 89; Pulse 72; Resp 18; Pulse Ox 98% on R/A; af3 03:28 Body Mass Index 35.51 (99.79 kg, 167.64 cm) af3 03:28 Pain Scale: Adult af3 Stanford Coma Score: 06:08 Eye Response: spontaneous(4). Motor Response: obeys commands(6). Verbal Response: sp4 oriented(5). Total: 15. ED Course: 03:16 Patient arrived in ED. gm2 03:16 LEILANI GILL is Private Physician. gm2 03:19 Aung De La O MD is Attending Physician. sp4 03:28 Virgie Orozco, RN is Primary Nurse. af3 03:31 Triage completed. af3 03:31 Arm band placed on. af3 03:33 Patient has correct armband on for positive identification. Bed in low position. Call af3 light in reach. Provided Education on: call light use . 03:33 No provider procedures requiring assistance completed. af3 03:47 Initial lab(s) drawn, by me, sent to lab. Inserted saline lock: 20 gauge in left af3 antecubital area, using aseptic technique. Blood collected. Flushed with 10 mL NS. 03:53 XRAY Chest (1 view) In Process Unspecified. EDMS 05:11 Extrem Venous W Compression Martin US In Process Unspecified. EDMS 06:09 LEILANI GILL is Referral Physician. sp4 06:44 IV discontinued, intact, bleeding controlled, No redness/swelling at site. Pressure af3 dressing applied. Administered Medications: No medications were administered Medication: 03:33 VIS not applicable for this client. af3 Outcome: 06:10 Discharge ordered by . sp4 06:44 Discharged to home ambulatory, af3 06:44 Condition: stable 06:44 Discharge instructions given to patient, Instructed on discharge instructions, follow up and referral plans. Demonstrated understanding of instructions, follow-up care, 06:45 Patient left the ED. af3 Signatures: Dispatcher [employer] EDMS Aung De La O MD MD sp4 Jasmin Pete gm2 Virgie Orozco, DEDRICK RN af3
--- NOTE | 2025-05-23 06:11 | EDPHYS ---
Physician Documentation [facility] Name: Nancy Mckeon Age: 44 yrs Sex: Female : 1980 Arrival Date: 05/23/2025 Time: 03:13 Bed 7 Private MD: LEILANI GILL ED Physician Aung De La O HPI: 05/23 03:19 This 44 yrs old Other Race Female presents to ER via Unassigned with complaints of Leg sp4 Swelling, Leg Pain, Feet Swelling, Foot Pain. 07:32 44-year-old female presents with complaint of bilateral lower extremity swelling.. sp4 07:34 Patient reports bilateral foot pain and bilateral lower extremity swelling for the past sp4 2 days. Historical: - Allergies: 03:31 Flexeril; af3 03:31 Ultram; af3 - PMHx: 03:31 Gastroesophageal reflux disease; Hypothyroidism; Seizure; af3 - PSHx: 03:31 Appendectomy; breast reduction; section; Cholecystectomy; hysterectomy; af3 - Immunization history:: Adult Immunizations not up to date. - Infectious Disease History:: Denies. - Social history:: Smoking status: Patient denies any tobacco usage or history of. - Family history:: not pertinent. ROS: 07:34 Constitutional: Negative for fever, chills, and weight loss, positive bilateral lower sp4 extremity swelling causes , positive bilateral foot pain 07:34 All other systems are negative, Exam: 06:08 Constitutional: This is a well developed, well nourished patient who is awake, alert, sp4 and in no acute distress. Head/Face: Normocephalic, atraumatic. Eyes: Pupils equal round and reactive to light, extra-ocular motions intact. Lids and lashes normal. Conjunctiva and sclera are not injected. Cornea within normal limits. Periorbital areas with no swelling, redness, or edema. ENT: Nares patent. No nasal discharge, no septal abnormalities noted. Tympanic membranes are normal and external auditory canals are clear. Oropharynx with no redness, swelling, or masses, exudates, or evidence of obstruction, uvula midline. Mucous membranes moist. Neck: Trachea midline, no thyromegaly or masses palpated, and no cervical lymphadenopathy. Supple, full range of motion without nuchal rigidity, or vertebral point tenderness. Chest/axilla: Normal chest wall appearance and motion. Nontender with no deformity. No lesions are appreciated. Cardiovascular: Regular rate and rhythm with a normal S1 and S2. No gallops, murmurs, or rubs. No pulse deficits. Respiratory: Lungs have equal breath sounds bilaterally, clear to auscultation and percussion. No rales, rhonchi or wheezes noted. No increased work of breathing, no retractions or nasal flaring. Abdomen/GI: Soft, with normal bowel sounds. No distension or tympany. No guarding or rebound. No evidence of tenderness throughout. Back: No spinal tenderness. No costovertebral tenderness. Skin: Warm, dry with normal turgor. Normal color with no rashes, no lesions, and no evidence of cellulitis. MS/ Extremity: Pulses equal, no cyanosis. Neurovascular intact. Full, normal range of motion. Neuro: Awake and alert, GCS 15, oriented to person, place, time, and situation. Cranial nerves II-XII grossly intact. Motor strength 5/5 in all extremities. Sensory grossly intact. Psych: Awake, alert, with orientation to person, place and time. Behavior, mood, and affect are within normal limits 06:08 ECG was reviewed by the Attending Physician. EKG 0 344 normal sinus rhythm rate 79 otherwise normal Vital Signs: 03:28 BP 142 / 94; Pulse 80; Resp 18; Temp 97.7; Pulse Ox 100% on R/A; Weight 99.79 kg; af3 Height 5 ft. 6 in. ; Pain 6/10; 04:56 BP 138 / 85; Pulse 80; Resp 18; Pulse Ox 100% on R/A; af3 05:30 BP 132 / 90; Pulse 91; Resp 18; Pulse Ox 98% on R/A; af3 06:44 BP 132 / 89; Pulse 72; Resp 18; Pulse Ox 98% on R/A; af3 03:28 Body Mass Index 35.51 (99.79 kg, 167.64 cm) af3 03:28 Pain Scale: Adult af3 Ruy Coma Score: 06:08 Eye Response: spontaneous(4). Motor Response: obeys commands(6). Verbal Response: sp4 oriented(5). Total: 15. MDM: 03:22 Medical Screening Exam initiated sp4 07:32 ED course: FINDINGS: Lungs: No pulmonary vascular congestion or consolidation. Pleural sp4 space: Unremarkable. No pneumothorax. Heart: Unremarkable. No cardiomegaly. Mediastinum: Unremarkable. Bones/joints: No acute fracture visualized. Upper abdomen: No free air in the visualized upper abdomen. IMPRESSION: No acute cardiopulmonary process identified. 07:34 Differential diagnosis: contusion, abrasion, tendonitis. Data reviewed: vital signs, sp4 nurses notes, lab test result(s), EKG, radiologic studies, plain films, ultrasound. Consideration of Admission/Observation Escalation of care including admission/observation considered. ED course: Ultrasound preliminary report negative bilateral DVT. 05/23 03:38 Order name: Basic Metabolic Panel; Complete Time: 05:46 sp4 05/23 03:38 Order name: CBC with Diff; Complete Time: 05:46 sp4 05/23 03:38 Order name: D-Dimer; Complete Time: 05:46 sp4 05/23 03:38 Order name: LFT's; Complete Time: 05:46 sp4 05/23 03:38 Order name: Magnesium; Complete Time: 05:46 sp4 05/23 03:38 Order name: NT PRO-BNP; Complete Time: 05:46 sp4 05/23 03:38 Order name: PT-INR; Complete Time: 05:46 sp4 05/23 03:38 Order name: Troponin HS; Complete Time: 05:46 sp4 05/23 03:38 Order name: UA W/ Microscopic; Complete Time: 04:12 sp4 05/23 03:39 Order name: TSH; Complete Time: 05:46 sp4 05/23 03:39 Order name: T4 Free; Complete Time: 05:46 sp4 05/23 03:38 Order name: XRAY Chest (1 view) 4 05/23 03:39 Order name: Extrem Venous W Compression Martin US 4 05/23 03:38 Order name: Cardiac monitoring; Complete Time: 03:47 sp4 05/23 03:38 Order name: EKG - Nurse/Tech; Complete Time: 03:47 sp4 05/23 03:38 Order name: IV Saline Lock; Complete Time: 03:47 sp4 05/23 03:38 Order name: Labs collected and sent; Complete Time: 03:47 sp4 05/23 03:38 Order name: O2 Per Protocol; Complete Time: 03:47 sp4 05/23 03:38 Order name: O2 Sat Monitoring; Complete Time: 03:47 sp4 EC:44 Rate is 79 beats/min. Rhythm is regular, Normal Sinus Rhythm. QRS [place] is Normal. [place] sp4 interval is normal. QRS interval is normal. QT interval is normal. No Q waves. T waves are Normal. No ST changes noted. Clinical impression: No evidence of ischemia. Interpreted by me. Reviewed by me. Administered Medications: No medications were administered Disposition: 07:35 Chart complete. sp4 Disposition Summary: 05/23/25 06:10 Discharge Ordered Problem: new sp4 Symptoms: have improved sp4 Condition: Stable sp4 Diagnosis - Bilateral lower extremity mild edema sp4 - Hypothyroidism sp4 Followup: sp4 - With: LEILANI GILL - When: 7 - 10 days - Reason: Recheck today's complaints Discharge Instructions: - Discharge Summary Sheet sp4 - Edema, [id number] sp4 Forms: - Patient Portal Instructions sp4 Signatures: Dispatcher [employer] EDAung Viera MD MD sp4 Virgie Orozco RN RN af3 Corrections: (The following items were deleted from the chart) 03:38 03:38 Chest Single View+RAD.RAD.BRZ ordered. EDMS EDMS 03:38 03:38 UA W/ Microscopic+U.LAB.BRZ ordered. EDMS EDMS 03:39 03:39 THYROID STIMULAT HORMONE+C.LAB.BRZ ordered. EDMS EDMS 03:39 03:39 T4 FREE+C.LAB.BRZ ordered. EDMS EDMS
--- NOTE | 2025-05-23 06:35 | RAD REPORT ---
EXAM: XR Chest, 1 View CLINICAL HISTORY: The patient is 44 years old and is Female; Congestion. TECHNIQUE: Single view of the chest. COMPARISON: XR Chest 12/29/[address] Chest abdomen pelvis 12/27/2024 No image report only. FINDINGS: Lungs: No pulmonary vascular congestion or consolidation. Pleural space: Unremarkable. No pneumothorax. Heart: Unremarkable. No cardiomegaly. Mediastinum: Unremarkable. Bones/joints: No acute fracture visualized. Upper abdomen: No free air in the visualized upper abdomen. IMPRESSION: No acute cardiopulmonary process identified. Electronically signed by: Coral Patel MD 05/23/2025 06:17 AM CDT RP V2 Due to temporary technical issues with the PACS/ViFlux reporting system, reports are being sophie d by the in-house radiologist without review as a courtesy to ensure prompt reporting. The interpreting radiologist is fully responsible for the content of the report. Transcribed Date/Time: 05/23/2025 6:34 AM
--- NOTE | 2025-05-23 08:09 | RAD REPORT ---
EXAMINATION: US Extrem Venous W Compress Martin CLINICAL INDICATION: [facility] MAIN bilateral leg swelling Bed Name: 7 N TECHNIQUE: Complete bilateral duplex sonography of the BILATERAL lower extremity veins was performed. The examination included compression for vein patency, color Doppler imaging and flow augmentation in response to distal compression of the distal external iliac, common femoral, femoral, popliteal, t ibial, and great and small saphenous veins. COMPARISON: No prior exam. FINDINGS: Duplex sonography testing of the veins of the BILATERAL lower extremity was performed. Color flow corie ging shows all veins to be compressible with [id number]-we-[id number] color filling. Pulsatile and phasic flow is present within all lower extremity deep and superficial veins examined. IMPRESSION: There is no deep vein or superficial vein thrombosis.
[2025-05-23 10:01] VITALS: TEMP 97.7
[2025-05-23 10:13] VITALS: O2SAT 98
[2025-05-23 10:27] VITALS: BP 132/89
== END 2025-05-23 06:45 | disposition home or self-care (01) ==
LOC: ER 03:13
DX: R60.0 Localized edema (principal); E03.9 Hypothyroidism, unspecified
CPT/HCPCS: 36415; 71045; 80048; 80076; 81001; 83735; 83880; 84439; 84443; 84484; 85025; 85379; 85610; 93005; 93970; 99284